=== PATIENT | male | born 1950 | race Caucasian/White ===

== ENCOUNTER 2021-06-03 05:45 | Day surgery (SDC) | payer MEDICARE ==
[2021-06-03] MEDS ORDERED: Lactated Ringers 1,000 ML IV SCH (06:30)
[2021-06-03 07:13] LABS: ANION GAP 12.2 MEQ/L (5-15); BLOOD UREA NITROGEN 11 mg/dL (9-20); CHLORIDE 99 mmol/L (98-107); Calcium 9.5 mg/dL (8.4-10.2); Carbon Dioxide 30 mmol/L (22-30); Cholesterol 149 mg/dL (50-200); Creatinine 1 1.25 mg/dL (0.66-1.25); EST GLOMERULAR FILTRATION RATE > 60.0 ML/MIN; Glucose 141 mg/dL (74-106); HDL CHOLESTEROL 27 mg/dL (40-60); LDL, DIRECT 92 mg/dL (30-100); Potassium 4.2 mmol/L (3.5-5.1); Risk Ratio 5.4; SGOT/AST 28 U/L (17-59); SGPT/ALT 25 U/L (0-50); SODIUM 137 mmol/L (137-145); TRIGLYCERIDE 126 mg/dL (30-150)
[2021-06-03] MEDS ORDERED: DIPRIVAN 200 MG/20 ML IV ONE ×2 (07:29)
[2021-06-03 08:46] VITALS: BP 156/74; PULSE 72; O2SAT 99
--- NOTE | 2021-06-03 12:02 | OP ---
SURGERY DATE/TIME: 06/03/2021 0728 PREOPERATIVE DIAGNOSIS: Screening exam. 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 PROCEDURE: Colonoscopy with cold forceps and hot snare polypectomy. SURGEON: Dr. Hodges. ANESTHESIA: MAC. Medications given by anesthesia department. HISTORY: The patient is a 71 year-old white male patient presenting for screening colonoscopy. The patient was appraised of the risks of the procedure including the risk of perforation, phlebitis, untoward reaction to medication, bleeding and missed lesions. The patient verbalized his understanding and desired to have the procedure performed. DESCRIPTION OF PROCEDURE: The patient was given the medications by the anesthesia department. He had continuous pulse oximetry, ECG monitoring, intermittent blood pressure monitoring and tidal CO2 monitoring during the examination. He was placed in the left lateral decubitus position. A digital rectal examination was performed and revealed normal anal sphincter tone, no masses and normal prostate. The flexible Olympus pediatric colonoscope was used to intubate the rectum. A view of the colon was developed to the cecum. There was noted to be thick mucus stool in a small percentage of the colon particularly in the right colon. There was also noted to be a polyp in the transverse colon approximately 1 cm in size which was removed using multiple passes with cold forceps biopsy resulting in a smaller approximately 0.5 cm polyp in the descending colon there was much larger approximately 2 cm in diameter what appeared to be tubulovillous adenoma in the rectum this was removed using hot polypectomy snare and retrieved with hot biopsy for evaluation. No other mucosal lesions being encountered, the scope was removed from the patient who tolerated the procedure well and was sent back to OP recovery in good condition. The prep was noted to be fair to good.
== END 2021-06-03 08:56 | disposition home or self-care (01) ==
LOC: SDC 05:45
PROVIDERS: ATTEND Family Medicine
DX: Z12.11 Encounter for screening for malignant neoplasm of colon (principal); Z79.899 Other long term (current) drug therapy; E11.9 Type 2 diabetes mellitus without complications; Z86.79 Personal history of other diseases of the circulatory system; Z79.01 Long term (current) use of anticoagulants; D12.4 Benign neoplasm of descending colon; D12.3 Benign neoplasm of transverse colon; D12.8 Benign neoplasm of rectum
CPT/HCPCS: 36415; 80048; 80061; 83036; 83721; 84450; 84460; 88305; 99100; J2704

== ENCOUNTER 2022-12-08 22:13 | Observation (INO) | payer MEDICARE ==
[2022-12-08 23:21] LABS: Absolute Neutrophil Ct (ANC) 4.08 x10^3/uL (1.4-6.9); Basophil (Absolute #) 0.02 x10^3/uL (0-0.4); Eosinophil % 2.8 % (0.00-5.0); Eosinophil (Absolute #) 0.16 x10^3/uL (0-0.5); Hemoglobin 13.6 g/dL (12.5-18.0); Lymphocyte (Absolute #) 1.08 x10^3/uL (1.0-4.6); Lymphocytes % 18.6 % (24.0-44.0); Mean Cell Volume 91.7 fL (78-100); Mean Corpuscular Hemoglobin 30.4 pg (26-32); Mean Corpuscular Hgb Concent. 33.2 g/dL (32-36); Monocyte (Absolute #) 0.46 x10^3/uL (0.0-1.3); Monocytes % 7.9 % (0.0-12.0); Neutrophil % 70.2 % (36.0-66.0); Platelet Count 147 x10^3/uL (150-450); Red Blood Count 4.47 x10^6/uL (4.1-5.6); Red Cell Distribution Width 13.5 % (11.5-14.0); White Blood Count 5.8 x10^3/uL (4.0-10.5)
--- NOTE | 2022-12-08 23:38 | ERPHSYRPT ---
- History of Present Illness Time Seen by Provider: 12/09/22 01:42 Source: patient Exam Limitations: no limitations Patient Subjective Stated Complaint: pt states he started having pain in his lt arm tonight. states he thinks it may be from anxiety and getting "worked up" worrying Triage Nursing Assessment: pt alert and oriented, answers questions approp. pt ambualtory with steady gait noted. respirations nonlabored with lungs cta. skin pink warm and dry. radial pulse and cap refill wnl. heart rate 74 on monitor- a fib, pt states chronic afib. Physician History: 72-year-old male presents to our ED for evaluation. Patient states he was at home lying in bed. Patient felt a vague discomfort in his left forearm. P atient became concerned and came to our ED for evaluation. Patient has a cardiac history. Patient states she had 5 vessel CABG performed in 1996. Patient has been feeling very anxious. Patient states he ate "a bunch of chocolate candy". Patient later went to sleep. Patient felt guilty about ea ting the candy. Patient's felt as though this may hurt his heart. In regretting his chocolate binge patient experienced vague discomfort at his left forearm. No associated chest pain or shortness of breath. No nausea vomiting or diaphoresis. Upon arrival to our ED patient was pain-free. Patient otherwise feels well. He voices no other complaints or concerns at this time. Portions of this note were created with voice recognition technology. There may be grammatical, spelling, punctuation or sound alike errors Timing/Duration: today Severity: moderate Modifying Factors: Improves With: nothing Associated Symptoms: denies symptoms Allergies/Adverse Reactions: No Known Drug Allergies Allergy (Verified 12/08/22 22:33) Home Medications: ALPRAZolam [Alprazolam] 0.25 mg PO DAILY 05/24/21 [History] Amlodipine Besylate 2.5 mg PO BID 05/24/21 [History] Apixaban [Eliquis] 5 mg PO BID 05/24/21 [History] Atorvastatin Calcium 20 mg PO DAILY 05/24/21 [History] Furosemide 40 mg PO BID 05/24/21 [History] Glyburide 5 mg [Micronase 5 MG] 1 tab PO BID 05/24/21 [History] Metformin HCl [Fortamet] 1 tab PO BID 05/24/21 [History] Potassium Chloride [Klor-Con 10] 1 tab PO DAILY 05/24/21 [History] Aspirin EC 81 mg [Ecotrin 81 mg] 81 mg PO DAILY 12/08/22 [History] Metoprolol Tartrate 50 mg [Lopressor 50 MG] 50 mg PO BID 12/08/22 [History] Hx Tetanus, Diphtheria Vaccination/Date Given: Yes Hx Influenza Vaccination/Date Given: Yes Hx Pneumococcal Vaccination/Date Given: No Immunizations Up to Date: Yes Travel Risk - International Travel Have you traveled outside of the country in past 3 weeks: No - Coronavirus Screening Are you exhibiting any of the following symptoms?: No Close contact with a COVID-19 positive Pt in past 14-21 Days: No - Vaccine Status Have you recieved a Covid-19 vaccination: Yes [employer]: [employer] - Vaccination Dates Date of 2cond Vaccination (if applicable): 2020 - Review of Systems Constitutional: No Symptoms, No Fever, No Chills Eyes: No Symptoms Ears, Nose, & Throat: No Symptoms Respiratory: No Symptoms, No Cough, No Dyspnea Cardiac: No Symptoms, No Chest Pain, No Edema, No Syncope Abdominal/Gastrointestinal: No Symptoms, No Abdominal Pain, No Nausea, No Vomiting, No Diarrhea Genitourinary Symptoms: No Symptoms, No Dysuria Musculoskeletal: No Symptoms, No Back Pain, No Neck Pain Skin: No Symptoms, No Rash Neurological: No Symptoms, No Dizziness, No Focal Weakness, No Sensory Changes Psychological: No Symptoms Endocrine: No Symptoms Hematologic/Lymphatic: No Symptoms Immunological/Allergic: No Symptoms All Other Systems: Reviewed and Negative - Past Medical History Neurological History: No Pertinent History ENT History: No Pertinent History Cardiac History: Coronary Artery Disease, High Cholesterol, Hypertension Respiratory History: No Pertinent History Endocrine Medical History: Diabetes Type II Musculoskeletal History: No Pertinent History GI Medical History: No Pertinent History History: No Pertinent History Psycho-Social History: No Pertinent History Male Reproductive Disorders: No Pertinent History - Past Surgical History Past Surgical History: Yes Neuro Surgical History: No Pertinent History Cardiac: CABG, Cardiac Catheterization Respiratory: No Pertinent History Gastrointestinal: No Pertinent History Genitourinary: No Pertinent History Musculoskeletal: No Pertinent History Male Surgical History: No Pertinent History Other Surgical History: 5 vessel cabg - Social History Smoking Status: Never smoker Exposure to second hand smoke: No Drug Use: none Patient Lives Alone: No - Nursing Vital Signs Nursing Vital Signs: Initial Vital Signs Temperature 98.3 F 12/08/22 22:14 Pulse Rate 92 H 12/08/22 22:14 Respiratory Rate 18 12/08/22 22:14 Blood Pressure 186/114 12/08/22 22:14 O2 Sat by Pulse Oximetry 98 12/08/22 22:14 Pain Scale Pain Intensity 0 - Physical Exam General Appearance: no apparent distress, alert Eye Exam: PERRL/EOMI, eyes nml inspection Ears, Nose, Throat Exam: normal ENT inspection, TMs normal, pharynx normal, moist mucous membranes Neck Exam: normal inspection, non-tender, supple, full range of motion Respiratory Exam: normal breath sounds, lungs clear, airway intact, No respiratory distress Cardiovascular Exam: regular rate/rhythm, normal heart sounds, normal peripheral pulses Gastrointestinal/Abdomen Exam: soft, normal bowel sounds, No tenderness, No mass Back Exam: normal inspection, normal range of motion, No CVA tenderness, No vertebral tenderness Extremity Exam: normal inspection, normal range of motion, pelvis stable Neurologic Exam: alert, oriented x 3, cooperative, normal mood/affect, nml cerebellar function, nml station & gait, sensation nml, No motor deficits Skin Exam: normal color, warm, dry, No rash Lymphatic Exam: No adenopathy SpO2 Interpretation: normal SpO2: 98 O2 Delivery: Room Air - Course Nursing assessment & vital signs reviewed: Yes EKG Interpreted by Me: RATE (81), A-fib (Chronic A. fib. Patient on Eliquis. Rate controlled at 81), NORMAL AXIS, NORMAL INTERVALS, Other (EKG is similar to that performed at [facility] on December 02, 2016. They faxed over a copy of the ECG performed at that time. A copy should be in patient's chart) - Radiology Exams Chest X-ray Interpretation: Interpreted by me (Clear lung rubio. Normal cardiac silhouette. Left humerus hardware. Osteopenia. Nonacute chest with chronic features) Ordered Tests: Active Orders 24 hr Category Date Time Status Oil Laboratory Analyst STAT Care 12/08/22 22:47 Active EKG-ER Only STAT Care 12/08/22 22:46 Active Pulse Oximetry (ED) STAT Care 12/08/22 22:46 Active CHEST 1 VIEW (PORTABLE) Stat Exams 12/09/22 03:26 Ordered CBC W DIFF Stat Lab 12/08/22 23:20 Completed CMP Stat Lab 12/08/22 23:20 Completed TROPONIN Q4H Lab 12/08/22 23:20 Completed TROPONIN Q4H Lab 12/09/22 02:00 Completed TROPONIN Q4H Lab 12/09/22 07:00 Ordered Transfer Order Routine Transfer 12/09/22 Ordered Medication Summary Discontinued Medications Generic Name Dose Route Start Last Admin Trade Name Verónica PRN Reason Stop Dose Admin Aspirin 324 mg 12/09/22 03:22 12/09/22 03:52 Aspirin 81 Mg Tab.Chew PO 12/09/22 03:23 324 mg STAT ONE Administration Aspirin Confirm 12/09/22 03:51 Aspirin 81 Mg Tab.Chew Administered 12/09/22 03:52 Dose 324 mg .ROUTE .STK-MED ONE Nitroglycerin 1 gm 12/09/22 03:22 12/09/22 03:52 Nitroglycerin 1 Gm Packet TOP 12/09/22 03:23 1 gm STAT ONE Administration Nitroglycerin Confirm 12/09/22 03:51 Nitroglycerin 1 Gm Packet Administered 12/09/22 03:52 Dose 1 gm .ROUTE .STK-MED ONE Lab/Rad Data: Laboratory Result Diagrams 12/08/22 23:20 12/08/22 23:20 Laboratory Results 12/09/22 12/08/22 12/08/22 Range/Units 02:00 23:20 23:20 WBC (4.0-10.5) x10^3/uL RBC (4.1-5.6) x10^6/uL Hgb (12.5-18.0) g/dL Hct (42-50) % MCV (78-100) fL MCH (26-32) pg MCHC (32-36) g/dL RDW (11.5-14.0) % Plt Count (150-450) x10^3/uL MPV (7.5-11.0) fL Gran % (36.0-66.0) % Immature Gran % (Auto) (0.00-0.4) % Nucleat RBC Rel Count (0.00-0.1) % Eos # (Auto) (0-0.5) x10^3/uL Immature Gran # (Auto) (0.00-0.03) x10^3u/L Absolute Lymphs (auto) (1.0-4.6) x10^3/uL Absolute Monos (auto) (0.0-1.3) x10^3/uL Absolute Nucleated RBC (0.00-0.01) x10^3u/L Lymphocytes % (24.0-44.0) % Monocytes % (0.0-12.0) % Eosinophils % (0.00-5.0) % Basophils % (0.0-0.4) % Absolute Granulocytes (1.4-6.9) x10^3/uL Basophils # (0-0.4) x10^3/uL Sodium 132 L (137-145) mmol/L Potassium 4.5 (3.5-5.1) mmol/L Chloride 98 (98-107) mmol/L Carbon Dioxide 26 (22-30) mmol/L Anion Gap 11.8 (5-15) MEQ/L BUN 15 (9-20) mg/dL Creatinine 1.30 H (0.66-1.25) mg/dL Estimated GFR 57.5 ML/MIN Glucose 252 H (74-106) mg/dL Calcium 8.5 (8.4-10.2) mg/dL Total Bilirubin 0.60 (0.2-1.3) mg/dL AST 24 (17-59) U/L ALT 24 (0-50) U/L Alkaline Phosphatase 125 (38-126) U/L Troponin I 0.016 0.015 (0.000-0.034) ng/mL Serum Total Protein 7.7 (6.3-8.2) g/dL Albumin 4.2 (3.5-5.0) g/dL Influenza Type A Ag (NEGATIVE) Influenza Type B Ag (NEGATIVE) RSV (PCR) (Negative) SARS-CoV-2 (PCR) (NEGATIVE) 12/08/22 12/08/22 Range/Units 23:20 00:00 WBC 5.8 (4.0-10.5) x10^3/uL RBC 4.47 (4.1-5.6) x10^6/uL Hgb 13.6 (12.5-18.0) g/dL Hct 41.0 L (42-50) % MCV 91.7 (78-100) fL MCH 30.4 (26-32) pg MCHC 33.2 (32-36) g/dL RDW 13.5 (11.5-14.0) % Plt Count 147 L (150-450) x10^3/uL MPV 9.0 (7.5-11.0) fL Gran % 70.2 H (36.0-66.0) % Immature Gran % (Auto) 0.2 (0.00-0.4) % Nucleat RBC Rel Count 0.0 (0.00-0.1) % Eos # (Auto) 0.16 (0-0.5) x10^3/uL Immature Gran # (Auto) 0.01 (0.00-0.03) x10^3u/L Absolute Lymphs (auto) 1.08 (1.0-4.6) x10^3/uL Absolute Monos (auto) 0.46 (0.0-1.3) x10^3/uL Absolute Nucleated RBC 0.00 (0.00-0.01) x10^3u/L Lymphocytes % 18.6 L (24.0-44.0) % Monocytes % 7.9 (0.0-12.0) % Eosinophils % 2.8 (0.00-5.0) % Basophils % 0.3 (0.0-0.4) % Absolute Granulocytes 4.08 (1.4-6.9) x10^3/uL Basophils # 0.02 (0-0.4) x10^3/uL Sodium (137-145) mmol/L Potassium (3.5-5.1) mmol/L Chloride (98-107) mmol/L Carbon Dioxide (22-30) mmol/L Anion Gap (5-15) MEQ/L BUN (9-20) mg/dL Creatinine (0.66-1.25) mg/dL Estimated GFR ML/MIN Glucose (74-106) mg/dL Calcium (8.4-10.2) mg/dL Total Bilirubin (0.2-1.3) mg/dL AST (17-59) U/L ALT (0-50) U/L Alkaline Phosphatase (38-126) U/L Troponin I (0.000-0.034) ng/mL Serum Total Protein (6.3-8.2) g/dL Albumin (3.5-5.0) g/dL Influenza Type A Ag NEGATIVE (NEGATIVE) Influenza Type B Ag NEGATIVE (NEGATIVE) RSV (PCR) NEGATIVE (Negative) SARS-CoV-2 (PCR) NEGATIVE (NEGATIVE) - Progress Progress: improved Progress Note: Patient is a 72-year-old male presents to our ED with a history of CABG x5 vessels approximately 23 years ago for evaluation of left arm pain. (Of note patient has history of A. fib. Currently on Eliquis) patient associated the left arm pain with acute coronary syndrome. No associated bryce chest pain or diaphoresis. Patient's review of system and physical exam essentially nonremarkable. Patient symptoms are acute in onset. Complexity of symptom was moderate. Orders include CBC CMP UA chest x-ray EKG, COVID troponin. Results reviewed. Results were used for medical decision making. Patient does not have any old EKGs in our system. We obtained previous EKGs from [facility]. EKGs were reviewed and appear similar to today's EKGs. Patient received aspirin and nitroglycerin in our ED. Patient blood pressure elevated. Patient will receive his home meds in our ED. Plan of care discussed with patient. He agrees to admission [facility] for f urther evaluation and treatment. Case discussed with Dr. Garcia who accepts admission to observation. Level of EM service provided was moderate. Complexity of problem addressed was moderate. Complexity of data reviewed and analyzed is moderate. Risks of complication and or risk of morbidity/mortality of patient management is moderate. No critical care time. 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 Admit orders entered Portions of this note were created with voice recognition technology. There may be grammatical, spelling, punctuation or sound alike errors 12/09/22 03:[address] Polly Will see patient in: hospital (observation) Counseled pt/family regarding: lab results, diagnosis, need for follow-up - Departure Departure Disposition: Observation Clinical Impression: Encounter for medical screening examination, Arm pain, Elevated troponin, Chronic renal insufficiency, ACS (acute coronary syndrome), Hypertension, Hyponatremia, Hyperglycemia, Abnormal EKG Condition: Stable Critical Care Time: No Referrals: TAMAR BARBOSA [Primary Care Provider] - Follow up/PCP as directed Additional Instructions: Discharge/Care Plan VALERIANO,IMAN GENE was seen on 12/09/22 in the Emergency Room. The patient was counseled regarding Diagnosis,Lab results, Imaging studies, need for follow up and when to return to the Emergency Room. Prescriptions given: Discharge Note I have spoken with the patient and/or caregivers. I have explained the patient's condition, diagnosis and treatment plan based on the information available to me at this time. I have answered the patient's and/or caregiver's questions and addressed any concerns. The patient and/or caregivers have as good understanding of the patient's diagnosis, condition and treatment plan as can be expected at this point. The vital signs have been stable. The patient's condition is stable and appropriate for discharge from the emergency department. The patient will pursue further outpatient evaluation with the primary care physician or other designated or consulting physician as outlined in the discharge instructions. The patient and/or caregivers are agreeable to this plan of care and follow-up instructions have been explained in detail. The patient and/or caregivers have received these instruction. The patient/and or caregivers are aware that any significant change in condition or worsening of symptoms should prompt an immediate return to this or the closest emergency department or call 911.
[2022-12-08 23:43] LABS: ALBUMIN 4.2 g/dL (3.5-5.0); ANION GAP 11.8 MEQ/L (5-15); BILIRUBIN,TOTAL 0.6 mg/dL (0.2-1.3); Calcium 8.5 mg/dL (8.4-10.2); Creatinine 1 1.3 mg/dL (0.66-1.25); EST GLOMERULAR FILTRATION RATE 57.5 ML/MIN; Potassium 4.5 mmol/L (3.5-5.1); Total Protein 7.7 g/dL (6.3-8.2)
[2022-12-09 00:25] LABS: INFLUENZA A NEGATIVE (NEGATIVE); INFLUENZA B NEGATIVE (NEGATIVE); RESPIRATORY SYNCTIAL VIRUS NEGATIVE (Negative); SARS-CoV-2 Xpert Express NEGATIVE (NEGATIVE)
[2022-12-09] MEDS ORDERED: NITRO-BID 2% UD PACKETS TOP ONE (03:22)
[2022-12-09] MEDS ORDERED: BABY ASPIRIN 81 MG CHEW PO ONE (03:22)
[2022-12-09] MEDS ORDERED: BABY ASPIRIN 81 MG CHEW ONE (03:51)
[2022-12-09] MEDS ORDERED: NITRO-BID 2% UD PACKETS ONE (03:51)
[2022-12-09] MEDS ORDERED: Senokot-S Tablet PO PRN (04:27)
[2022-12-09] MEDS ORDERED: MAALOX ES 30 ML UNIT DOSE PO PRN (04:27)
[2022-12-09] MEDS ORDERED: MILK OF MAGNESIA 30 ML PO PRN (04:27)
[2022-12-09] MEDS ORDERED: Zofran 4 MG/2 ML VIAL IV PRN (04:27)
--- NOTE | 2022-12-09 08:50 | XRAY ---
Indication: Chest pain. Comparison: March 06, 2016 Portable apical lordotic chest remains clear again with incidental tiny calcified granulomas. Heart not enlarged again with CABG. Bony thorax intact again with osteopenia and mild degenerative changes. Impression: Continued nonacute chest with chronic features.
[2022-12-09] MEDS ORDERED: ZOCOR 20MG PO SCH (10:00)
[2022-12-09] MEDS: Klor Con PO SCH (10:32)
[2022-12-09] MEDS: ELIQUIS 2.5 MG TABLET PO SCH ×2 (10:32→19:23)
[2022-12-09] MEDS: NORVASC 5 MG PO SCH ×2 (10:32→19:23)
[2022-12-09] MEDS: Lasix 40 MG PO SCH ×2 (10:32→15:24)
[2022-12-09] MEDS: Micronase 5 MG PO SCH ×2 (10:32→19:22)
[2022-12-09] MEDS: Lopressor 50 MG PO SCH ×2 (10:32→19:23)
[2022-12-09] MEDS: ECOTRIN 81 MG PO SCH (10:32)
[2022-12-09] MEDS: xanAX 0.25 MG PO PRN (10:36)
--- NOTE | 2022-12-09 13:00 | PCM.HP ---
History of Present Illness - Chief Complaint Chief Complaint: ACS, INCREASED TROPONIN, ABNORMAL EKG History of Present Illness: is a 72 year old male pt of Dr. Hodges admitted through ER with armpain to r/o ID, hyponatremia, abdn ekg, hyperglycemia. He has hx CAD (CABG x5, 23 yr ago) and sees Dr. Olvera. Also PMHx of RAHUL, afib, DM, HTN, CRI (since at least 2017). Has never been a smoker. He felt bad yesterday pm, felt cold and tired. Had bilat arm pain; was outside and thought it may be due to the cold; it did resolve when he went inside. Pain was shoulders to forearms bilat; sometimes he says his hands hurt and sometimes he denies it. He has been having episodes of bilat arm pain, usually when in the cold - says unsure what's causing it. No hx shoulder surgery. says yesterday he got on a ladder inside and was working with his hands in the air. BP noted up to 201/108, 190/114. says he has been taking home meds and took his last night. CXR nonacute. Troponins neg x 3. EKG showed afib, rate controlled, no ST changed indicative of ischemia. - Review of Systems Cardiac: Edema (LLE edema, chronic), Other (bilat arm pain) Abdominal/Gastrointestinal: Diarrhea (yesterday) Skin: Pruritis (but no visible rash (arms)) Medications & Allergies Home Medications: Home Medication List ALPRAZolam [Alprazolam] 0.125 mg PO BIDPRN PRN 05/24/21 [History Confirmed 12/09/22] Amlodipine Besylate 2.5 mg PO BID 05/24/21 [History Confirmed 12/08/22] Apixaban [Eliquis] 5 mg PO BID 05/24/21 [History Confirmed 12/08/22] Atorvastatin Calcium 20 mg PO HS 05/24/21 [History Confirmed 12/09/22] Furosemide 40 mg PO 0800,1600 05/24/21 [History Confirmed 12/09/22] Glyburide 5 mg [Micronase 5 MG] 5 mg PO BID 05/24/21 [History Confirmed 12/09/22] Metformin HCl [Fortamet] 1,000 mg PO BID 05/24/21 [History Confirmed 12/09/22] Potassium Chloride [Klor-Con 10] 10 meq PO DAILY 05/24/21 [History Confirmed 12/09/22] Aspirin EC 81 mg [Ecotrin 81 mg] 81 mg PO DAILY 12/08/22 [History Confirmed 12/08/22] Metoprolol Tartrate 50 mg [Lopressor 50 MG] 50 mg PO BID 12/08/22 [History Confirmed 12/08/22] Allergies/Adverse Reactions: Allergies Allergy/AdvReac Type Severity Reaction Status Date / Time No Known Drug Allergies Allergy Verified 12/09/22 05:08 - Past Medical History Past Medical History: Yes Neurological History: No Pertinent History ENT History: No Pertinent History Cardiac History: Coronary Artery Disease, High Cholesterol, Hypertension Respiratory History: CHF Endocrine Medical History: Diabetes Type II Musculoskelatal History: No Pertinent History GI Medical History: No Pertinent History History: No Pertinent History Pyscho-Social History: No Pertinent History Male Reproductive Disorders: No Pertinent History - Past Surgical History Past Surgical History: Yes Neuro Surgical History: No Pertinent History Cardiac History: CABG, Cardiac Catheterization Respiratory Surgery: No Pertinent History GI Surgical History: No Pertinent History Genitourinary Surgical Hx: No Pertinent History Musculskeletal Surgical Hx: No Pertinent History Male Surgical History: No Pertinent History Other Surgical History: 5 vessel cabg - Social History Smoking Status: Never smoker Exposure to second hand smoke: No Alcohol: None Drug Use: none - Physical Exam Vital Signs: Vital Signs - 24 hr Temp Pulse Resp BP Pulse Ox 12/09/22 11:51 97.4 F 77 16 145/85 93 L 12/09/22 07:52 97.3 F 76 16 148/75 93 L 12/09/22 06:20 78 166/81 12/09/22 04:48 98.0 F 80 20 190/114 98 12/09/22 04:15 98 12/09/22 04:09 102 H 18 169/104 96 12/09/22 02:00 86 16 201/108 97 12/09/22 01:07 85 16 182/95 97 12/09/22 00:14 80 15 169/85 96 12/08/22 22:46 96 12/08/22 22:14 98.3 F 92 H 18 186/114 98 Neurologic Exam: alert (oriented to place but not time, "I'm retired"), cooperative Eye Exam: eyes nml inspection Ears, Nose, Throat Exam: moist mucous membranes Neck Exam: normal inspection, non-tender, No lymphadenopathy, No subcutaneous emphysema, No thyromegaly Respiratory Exam: normal breath sounds, lungs clear, No crackles/rales, No rhonchi, No wheezing Cardiovascular Exam: regular rate/rhythm, normal heart sounds, No murmur Gastrointestinal/Abdomen Exam: soft, normal bowel sounds, No tenderness, No distention, No mass, No guarding, No rebound Back Exam: normal inspection, No CVA tenderness, No rash Extremity Exam: normal inspection, swelling (trace pretibial edema bilat) Skin Exam: normal color, warm, dry, No rash Results - Labs Lab/Micro Results: Lab Results-Last 24 Hours 12/08/22 12/08/22 12/08/22 Range/Units 00:00 23:20 23:20 WBC 5.8 (4.0-10.5) x10^3/uL RBC 4.47 (4.1-5.6) x10^6/uL Hgb 13.6 (12.5-18.0) g/dL Hct 41.0 L (42-50) % MCV 91.7 (78-100) fL MCH 30.4 (26-32) pg MCHC 33.2 (32-36) g/dL RDW 13.5 (11.5-14.0) % Plt Count 147 L (150-450) x10^3/uL MPV 9.0 (7.5-11.0) fL Gran % 70.2 H (36.0-66.0) % Immature Gran % (Auto) 0.2 (0.00-0.4) % Nucleat RBC Rel Count 0.0 (0.00-0.1) % Eos # (Auto) 0.16 (0-0.5) x10^3/uL Immature Gran # (Auto) 0.01 (0.00-0.03) x10^3u/L Absolute Lymphs (auto) 1.08 (1.0-4.6) x10^3/uL Absolute Monos (auto) 0.46 (0.0-1.3) x10^3/uL Absolute Nucleated RBC 0.00 (0.00-0.01) x10^3u/L Lymphocytes % 18.6 L (24.0-44.0) % Monocytes % 7.9 (0.0-12.0) % Eosinophils % 2.8 (0.00-5.0) % Basophils % 0.3 (0.0-0.4) % Absolute Granulocytes 4.08 (1.4-6.9) x10^3/uL Basophils # 0.02 (0-0.4) x10^3/uL Sodium 132 L (137-145) mmol/L Potassium 4.5 (3.5-5.1) mmol/L Chloride 98 (98-107) mmol/L Carbon Dioxide 26 (22-30) mmol/L Anion Gap 11.8 (5-15) MEQ/L BUN 15 (9-20) mg/dL Creatinine 1.30 H (0.66-1.25) mg/dL Estimated GFR 57.5 ML/MIN Glucose 252 H (74-106) mg/dL POC Glucometer (74 to 106) mg/dL Calcium 8.5 (8.4-10.2) mg/dL Total Bilirubin 0.60 (0.2-1.3) mg/dL AST 24 (17-59) U/L ALT 24 (0-50) U/L Alkaline Phosphatase 125 (38-126) U/L Troponin I (0.000-0.034) ng/mL Serum Total Protein 7.7 (6.3-8.2) g/dL Albumin 4.2 (3.5-5.0) g/dL Influenza Type A Ag NEGATIVE (NEGATIVE) Influenza Type B Ag NEGATIVE (NEGATIVE) RSV (PCR) NEGATIVE (Negative) SARS-CoV-2 (PCR) NEGATIVE (NEGATIVE) 12/08/22 12/09/22 12/09/22 Range/Units 23:20 02:00 06:47 WBC (4.0-10.5) x10^3/uL RBC (4.1-5.6) x10^6/uL Hgb (12.5-18.0) g/dL Hct (42-50) % MCV (78-100) fL MCH (26-32) pg MCHC (32-36) g/dL RDW (11.5-14.0) % Plt Count (150-450) x10^3/uL MPV (7.5-11.0) fL Gran % (36.0-66.0) % Immature Gran % (Auto) (0.00-0.4) % Nucleat RBC Rel Count (0.00-0.1) % Eos # (Auto) (0-0.5) x10^3/uL Immature Gran # (Auto) (0.00-0.03) x10^3u/L Absolute Lymphs (auto) (1.0-4.6) x10^3/uL Absolute Monos (auto) (0.0-1.3) x10^3/uL Absolute Nucleated RBC (0.00-0.01) x10^3u/L Lymphocytes % (24.0-44.0) % Monocytes % (0.0-12.0) % Eosinophils % (0.00-5.0) % Basophils % (0.0-0.4) % Absolute Granulocytes (1.4-6.9) x10^3/uL Basophils # (0-0.4) x10^3/uL Sodium (137-145) mmol/L Potassium (3.5-5.1) mmol/L Chloride (98-107) mmol/L Carbon Dioxide (22-30) mmol/L Anion Gap (5-15) MEQ/L BUN (9-20) mg/dL Creatinine (0.66-1.25) mg/dL Estimated GFR ML/MIN Glucose (74-106) mg/dL POC Glucometer 193 H (74 to 106) mg/dL Calcium (8.4-10.2) mg/dL Total Bilirubin (0.2-1.3) mg/dL AST (17-59) U/L ALT (0-50) U/L Alkaline Phosphatase (38-126) U/L Troponin I 0.015 0.016 (0.000-0.034) ng/mL Serum Total Protein (6.3-8.2) g/dL Albumin (3.5-5.0) g/dL Influenza Type A Ag (NEGATIVE) Influenza Type B Ag (NEGATIVE) RSV (PCR) (Negative) SARS-CoV-2 (PCR) (NEGATIVE) 12/09/22 12/09/22 Range/Units 07:25 11:32 WBC (4.0-10.5) x10^3/uL RBC (4.1-5.6) x10^6/uL Hgb (12.5-18.0) g/dL Hct (42-50) % MCV (78-100) fL MCH (26-32) pg MCHC (32-36) g/dL RDW (11.5-14.0) % Plt Count (150-450) x10^3/uL MPV (7.5-11.0) fL Gran % (36.0-66.0) % Immature Gran % (Auto) (0.00-0.4) % Nucleat RBC Rel Count (0.00-0.1) % Eos # (Auto) (0-0.5) x10^3/uL Immature Gran # (Auto) (0.00-0.03) x10^3u/L Absolute Lymphs (auto) (1.0-4.6) x10^3/uL Absolute Monos (auto) (0.0-1.3) x10^3/uL Absolute Nucleated RBC (0.00-0.01) x10^3u/L Lymphocytes % (24.0-44.0) % Monocytes % (0.0-12.0) % Eosinophils % (0.00-5.0) % Basophils % (0.0-0.4) % Absolute Granulocytes (1.4-6.9) x10^3/uL Basophils # (0-0.4) x10^3/uL Sodium (137-145) mmol/L Potassium (3.5-5.1) mmol/L Chloride (98-107) mmol/L Carbon Dioxide (22-30) mmol/L Anion Gap (5-15) MEQ/L BUN (9-20) mg/dL Creatinine (0.66-1.25) mg/dL Estimated GFR ML/MIN Glucose (74-106) mg/dL POC Glucometer 227 H (74 to 106) mg/dL Calcium (8.4-10.2) mg/dL Total Bilirubin (0.2-1.3) mg/dL AST (17-59) U/L ALT (0-50) U/L Alkaline Phosphatase (38-126) U/L Troponin I 0.020 (0.000-0.034) ng/mL Serum Total Protein (6.3-8.2) g/dL Albumin (3.5-5.0) g/dL Influenza Type A Ag (NEGATIVE) Influenza Type B Ag (NEGATIVE) RSV (PCR) (Negative) SARS-CoV-2 (PCR) (NEGATIVE) Accuchecks Date 12/09/22 Time 11:50 - Radiology Impressions Radiology Exams & Impressions: Radiology Procedures Category Date Time Status CHEST 1 VIEW (PORTABLE) Stat Exams 12/09/22 03:26 Completed - Other Procedures and Tests Respiratory Therapy 12/10/22 05:00 EKG DAILY 12/11/22 05:00 EKG DAILY 12/12/22 05:00 EKG DAILY Assessment/Plan (1) Hypertensive emergency Current Visit: Yes Status: Acute Assessment & Plan: will watch him until tomorrow; will get home meds this morning Code(s): I16.1 - HYPERTENSIVE EMERGENCY (2) ACS (acute coronary syndrome) Current Visit: Yes Status: Ruled-out Assessment & Plan: ID ruled out. Code(s): I24.9 - ACUTE ISCHEMIC HEART DISEASE, UNSPECIFIED (3) Abnormal EKG Current Visit: Yes Status: Ruled-out Assessment & Plan: I don't appreciate any ST changes on EKG that could indicate ischemia. Code(s): R94.31 - ABNORMAL ELECTROCARDIOGRAM [ECG] [EKG] (4) Arm pain Current Visit: Yes Status: Acute Qualifiers: Laterality: bilateral Qualified Code(s): M79.601 - Pain in right arm; M79.602 - Pain in left arm Assessment & Plan: not currently c/o arm pain (5) Chronic renal insufficiency Current Visit: Yes Status: Chronic Code(s): N18.9 - CHRONIC KIDNEY DISEASE, UNSPECIFIED (6) Hyponatremia Current Visit: Yes Status: Acute Assessment & Plan: recheck today. Code(s): E87.1 - HYPO-OSMOLALITY AND HYPONATREMIA
[2022-12-09 14:48] LABS: Absolute Neutrophil Ct (ANC) 5.28 x10^3/uL (1.4-6.9); Basophil (Absolute #) 0.02 x10^3/uL (0-0.4); Eosinophil % 1.4 % (0.00-5.0); Hematocrit 41.4 % (42-50); Hemoglobin 13.6 g/dL (12.5-18.0); Lymphocyte (Absolute #) 0.95 x10^3/uL (1.0-4.6); Lymphocytes % 13.7 % (24.0-44.0); Mean Cell Volume 90.8 fL (78-100); Mean Corpuscular Hemoglobin 29.8 pg (26-32); Mean Corpuscular Hgb Concent. 32.9 g/dL (32-36); Mean Platelet Volume 9.1 fL (7.5-11.0); Monocyte (Absolute #) 0.54 x10^3/uL (0.0-1.3); Monocytes % 7.8 % (0.0-12.0); Neutrophil % 76.5 % (36.0-66.0); Platelet Count 147 x10^3/uL (150-450); Red Blood Count 4.56 x10^6/uL (4.1-5.6); Red Cell Distribution Width 13.6 % (11.5-14.0); White Blood Count 6.9 x10^3/uL (4.0-10.5)
[2022-12-09 15:22] LABS: ANION GAP 9.2 MEQ/L (5-15); Calcium 8.7 mg/dL (8.4-10.2); Creatinine 1 1.29 mg/dL (0.66-1.25); Potassium 4.2 mmol/L (3.5-5.1)
[2022-12-09] MEDS: APRESOLINE 20 MG/ML INJ IV PRN ×2 (16:52→17:36)
[2022-12-09] MEDS: ZOCOR 20MG PO SCH (19:22)
[2022-12-09] MEDS ORDERED: NON-FORMULARY ITEM (Amlodipine Besylate [Amlodipine Besylate] 2.5 MG Tablet) PO SCH (22:00)
[2022-12-09] MEDS ORDERED: NON-FORMULARY ITEM (Apixaban [Eliquis] 5 MG Tablet) PO SCH (22:00)
[2022-12-10] MEDS: APRESOLINE 20 MG/ML INJ IV PRN ×2 (03:46→04:29)
[2022-12-10 05:51] LABS: Absolute Neutrophil Ct (ANC) 4.71 x10^3/uL (1.4-6.9); Basophil (Absolute #) 0.03 x10^3/uL (0-0.4); Eosinophil % 1.5 % (0.00-5.0); Hemoglobin 14.1 g/dL (12.5-18.0); Lymphocyte (Absolute #) 1.16 x10^3/uL (1.0-4.6); Lymphocytes % 17.7 % (24.0-44.0); Mean Cell Volume 90.3 fL (78-100); Mean Corpuscular Hemoglobin 29.6 pg (26-32); Mean Corpuscular Hgb Concent. 32.8 g/dL (32-36); Mean Platelet Volume 9.1 fL (7.5-11.0); Monocyte (Absolute #) 0.54 x10^3/uL (0.0-1.3); Monocytes % 8.2 % (0.0-12.0); Neutrophil % 71.8 % (36.0-66.0); Platelet Count 142 x10^3/uL (150-450); Red Blood Count 4.76 x10^6/uL (4.1-5.6); Red Cell Distribution Width 13.5 % (11.5-14.0); White Blood Count 6.6 x10^3/uL (4.0-10.5)
[2022-12-10 06:37] LABS: ANION GAP 11.6 MEQ/L (5-15); BLOOD UREA NITROGEN 14 mg/dL (9-20); CHLORIDE 101 mmol/L (98-107); Carbon Dioxide 26 mmol/L (22-30); Cholesterol 176 mg/dL (50-200); Creatinine 1 1.22 mg/dL (0.66-1.25); EST GLOMERULAR FILTRATION RATE > 60.0 ML/MIN; Glucose 193 mg/dL (74-106); HDL CHOLESTEROL 33 mg/dL (40-60); LDL, DIRECT 110 mg/dL (30-100); Potassium 3.5 mmol/L (3.5-5.1); Risk Ratio 5.3; SODIUM 136 mmol/L (137-145); TRIGLYCERIDE 100 mg/dL (30-150)
[2022-12-10] MEDS: TYLENOL 325 MG PO PRN (08:17)
[2022-12-10] MEDS: ECOTRIN 81 MG PO SCH (08:18)
[2022-12-10] MEDS: Klor Con PO SCH (08:18)
[2022-12-10] MEDS: ELIQUIS 2.5 MG TABLET PO SCH ×2 (08:18→21:15)
[2022-12-10] MEDS ORDERED: TRANDATE 20 MG/4 ML SYRINGE IV PRN (08:28)
--- NOTE | 2022-12-10 08:34 | PCM.NOTE ---
Date and Time: 12/10/22829 Subjective Assessment: He had to have hydralazine x 3 yesterday and x 1 this a.m. He says it made him hot all over and had to cover his face with a wet washrag. BP up to 201/102 (from 145-201/75-111). He does not salt his food but doesn't watch labels. Denies CP but has a DAVILA. - Review of Systems Constitutional: No Fever Cardiac: No Chest Pain Objective Exam General Appearance: no apparent distress, obese Neurologic Exam: alert, cooperative, normal mood/affect Skin Exam: normal color, warm, dry, No rash Eye Exam: eyes nml inspection Ears, Nose, Throat Exam: moist mucous membranes Neck Exam: normal inspection Respiratory Exam: normal breath sounds, lungs clear, No crackles/rales, No rhonchi, No wheezing Cardiovascular Exam: normal heart sounds, irregular, No murmur Gastrointestinal/Abdomen Exam: soft, normal bowel sounds, No tenderness, No distention, No mass, No guarding, No rebound Extremity Exam: normal inspection, swelling (trace pretibial edema bilat) Back Exam: normal inspection, No rash OBJECTIVE DATA Vital Signs: Vital Signs - 24 hr Temp Pulse Resp BP Pulse Ox 12/10/22 07:31 97.5 F 83 18 179/94 95 12/10/22 05:20 183/92 12/10/22 04:30 198/100 12/10/22 03:30 98.2 F 89 22 201/102 96 12/09/22 23:40 98.2 F 92 H 19 171/74 97 12/09/22 20:00 98.0 F 97 H 21 141/80 96 12/09/22 18:14 176/94 12/09/22 17:36 187/111 12/09/22 17:18 190/100 12/09/22 16:00 97.7 F 82 16 189/91 94 L 12/09/22 11:51 97.4 F 77 16 145/85 93 L Pain Assessment - Last Documented Pain Intensity 7 Pain Scale Used 0-10 Pain Scale Intake and Output: Intake & Output 12/07/22 12/08/22 12/09/22 12/10/22 11:59 11:59 11:59 11:59 Intake Total 240 1670 Balance 240 1670 Weight 127.5 kg Lab Results: Lab Results-Last 24 Hours 12/09/22 12/09/22 12/09/22 Range/Units 11:32 14:45 14:45 WBC 6.9 (4.0-10.5) x10^3/uL RBC 4.56 (4.1-5.6) x10^6/uL Hgb 13.6 (12.5-18.0) g/dL Hct 41.4 L (42-50) % MCV 90.8 (78-100) fL MCH 29.8 (26-32) pg MCHC 32.9 (32-36) g/dL RDW 13.6 (11.5-14.0) % Plt Count 147 L (150-450) x10^3/uL MPV 9.1 (7.5-11.0) fL Gran % 76.5 H (36.0-66.0) % Immature Gran % (Auto) 0.3 (0.00-0.4) % Nucleat RBC Rel Count 0.0 (0.00-0.1) % Eos # (Auto) 0.10 (0-0.5) x10^3/uL Immature Gran # (Auto) 0.02 (0.00-0.03) x10^3u/L Absolute Lymphs (auto) 0.95 L (1.0-4.6) x10^3/uL Absolute Monos (auto) 0.54 (0.0-1.3) x10^3/uL Absolute Nucleated RBC 0.00 (0.00-0.01) x10^3u/L Lymphocytes % 13.7 L (24.0-44.0) % Monocytes % 7.8 (0.0-12.0) % Eosinophils % 1.4 (0.00-5.0) % Basophils % 0.3 (0.0-0.4) % Absolute Granulocytes 5.28 (1.4-6.9) x10^3/uL Basophils # 0.02 (0-0.4) x10^3/uL Sodium 132 L (137-145) mmol/L Potassium 4.2 (3.5-5.1) mmol/L Chloride 98 (98-107) mmol/L Carbon Dioxide 29 (22-30) mmol/L Anion Gap 9.2 (5-15) MEQ/L BUN 13 (9-20) mg/dL Creatinine 1.29 H (0.66-1.25) mg/dL Estimated GFR 58.0 ML/MIN Glucose 185 H (74-106) mg/dL POC Glucometer 227 H (74 to 106) mg/dL Calcium 8.7 (8.4-10.2) mg/dL Triglycerides (30-150) mg/dL Cholesterol (50-200) mg/dL LDL Cholesterol (30-100) mg/dL HDL Cholesterol (40-60) mg/dL Heart Disease Risk Ratio 12/10/22 12/10/22 12/10/22 Range/Units 05:00 05:00 07:22 WBC 6.6 (4.0-10.5) x10^3/uL RBC 4.76 (4.1-5.6) x10^6/uL Hgb 14.1 (12.5-18.0) g/dL Hct 43.0 (42-50) % MCV 90.3 (78-100) fL MCH 29.6 (26-32) pg MCHC 32.8 (32-36) g/dL RDW 13.5 (11.5-14.0) % Plt Count 142 L (150-450) x10^3/uL MPV 9.1 (7.5-11.0) fL Gran % 71.8 H (36.0-66.0) % Immature Gran % (Auto) 0.3 (0.00-0.4) % Nucleat RBC Rel Count 0.0 (0.00-0.1) % Eos # (Auto) 0.10 (0-0.5) x10^3/uL Immature Gran # (Auto) 0.02 (0.00-0.03) x10^3u/L Absolute Lymphs (auto) 1.16 (1.0-4.6) x10^3/uL Absolute Monos (auto) 0.54 (0.0-1.3) x10^3/uL Absolute Nucleated RBC 0.00 (0.00-0.01) x10^3u/L Lymphocytes % 17.7 L (24.0-44.0) % Monocytes % 8.2 (0.0-12.0) % Eosinophils % 1.5 (0.00-5.0) % Basophils % 0.5 (0.0-0.4) % Absolute Granulocytes 4.71 (1.4-6.9) x10^3/uL Basophils # 0.03 (0-0.4) x10^3/uL Sodium 136 L (137-145) mmol/L Potassium 3.5 (3.5-5.1) mmol/L Chloride 101 (98-107) mmol/L Carbon Dioxide 26 (22-30) mmol/L Anion Gap 11.6 (5-15) MEQ/L BUN 14 (9-20) mg/dL Creatinine 1.22 (0.66-1.25) mg/dL Estimated GFR > 60.0 ML/MIN Glucose 193 H (74-106) mg/dL POC Glucometer 165 H (74 to 106) mg/dL Calcium 9.0 (8.4-10.2) mg/dL Triglycerides 100 (30-150) mg/dL Cholesterol 176 (50-200) mg/dL LDL Cholesterol 110 H (30-100) mg/dL HDL Cholesterol 33 L (40-60) mg/dL Heart Disease Risk Ratio 5.3 Radiology Exams: Radiology Procedures Category Date Time Status CHEST 1 VIEW (PORTABLE) Stat Exams 12/09/22 03:26 Completed Assessment/Plan (1) Hypertensive emergency Current Visit: Yes Status: Acute Assessment & Plan: Still having elevated BP with some DAVILA this morning. BP down to 160s systolic with hydralazine. He is currently on torpol 50mg po BID and amlodipine 2.5mg po BID. I am increasing the amlodipine this morning to 10 mg po daily - I suspect he may have had increased swelling with amlodipine in the past, so this may be a temporary m easure. I'm also adding lisinopril 10mg po daily, knowing that it may take up to a week to fully take effect, and the amlodipine may be decreased at that time. However I do need to see BP < 180 systolic consistently before sending pt home. Code(s): I16.1 - HYPERTENSIVE EMERGENCY (2) Arm pain Current Visit: Yes Status: Acute Qualifiers: Laterality: bilateral Qualified Code(s): M79.601 - Pain in right arm; M79.602 - Pain in left arm Assessment & Plan: no complaint this morning. (3) Chronic renal insufficiency Current Visit: Yes Status: Chronic Assessment & Plan: eGFR normal this morning. Code(s): N18.9 - CHRONIC KIDNEY DISEASE, UNSPECIFIED (4) Hyponatremia Current Visit: Yes Status: Acute Assessment & Plan: nearly resolved, 136 this morning. Code(s): E87.1 - HYPO-OSMOLALITY AND HYPONATREMIA
[2022-12-10] MEDS: Glucophage 500 MG PO SCH ×2 (09:11→17:32)
[2022-12-10] MEDS: Micronase 5 MG PO SCH ×2 (09:11→21:15)
[2022-12-10] MEDS: Lasix 40 MG PO SCH ×2 (09:12→17:32)
[2022-12-10] MEDS: Zestril 10 MG PO SCH (09:12)
[2022-12-10] MEDS: Lopressor 50 MG PO SCH ×2 (09:12→21:15)
[2022-12-10] MEDS ORDERED: NORVASC 5 MG PO SCH (10:00)
[2022-12-10] MEDS ORDERED: NON-FORMULARY ITEM (Atorvastatin Calcium [Atorvastatin Calcium] 20 MG Tablet) PO SCH (10:00)
[2022-12-10] MEDS ORDERED: NON-FORMULARY ITEM (Potassium Chloride [Klor-Con 10] 10 MEQ Tablet.Er) PO SCH (10:00)
[2022-12-10] MEDS ORDERED: HUMALOG SQ PRN (14:56)
[2022-12-10 14:58] LABS: Hematocrit 45.8 % (42-50); Hemoglobin 14.3 g/dL (12.5-18.0); Mean Cell Volume 97.9 fL (78-100); Mean Corpuscular Hemoglobin 30.6 pg (26-32); Mean Corpuscular Hgb Concent. 31.2 g/dL (32-36); Platelet Count 136 x10^3/uL (150-450); Red Blood Count 4.68 x10^6/uL (4.1-5.6); White Blood Count 6.8 x10^3/uL (4.0-10.5)
--- NOTE | 2022-12-10 15:21 | XRAY ---
Indication: Confusion. Multiple contiguous axial images obtained through the head without contrast. Comparison: None Age-appropriate global atrophy and mild periventricular degenerative micro-ischemia bilaterally. No acute intracranial hemorrhage, abnormal extra-axial fluid collection, or mass effect. Fourth ventricle is midline without hydrocephalus. Bony calvarium intact. Visualized paranasal sinuses and mastoid air cells are clear. Impression: Nonacute senile brain.
[2022-12-10 15:25] LABS: ALBUMIN 4.1 g/dL (3.5-5.0); ANION GAP 10.3 MEQ/L (5-15); BILIRUBIN,TOTAL 0.7 mg/dL (0.2-1.3); Calcium 9.2 mg/dL (8.4-10.2); Creatinine 1 1.53 mg/dL (0.66-1.25); EST GLOMERULAR FILTRATION RATE 47.7 ML/MIN; Potassium 4.1 mmol/L (3.5-5.1); Total Protein 7.2 g/dL (6.3-8.2)
[2022-12-10 15:31] LABS: Appearance Clear (Clear); Bacteria None Seen /HPF (None Seen); Bilirubin Negative (Negative); Blood Negative (Negative); Epithelial Cells None Seen /HPF (None Seen); Glucose, Urine Negative (Negative); Ketones Trace (Negative); Leukocyte Esterase Negative (Negative); Nitrite Negative (Negative); Protein,Urine Dip 30 (Negative); RBC 0-2 /HPF (0-5); WBC 0-2 /HPF (0-5)
[2022-12-10 15:32] LABS: ADD URINE CULTURE? NO (NO); Hyaline Casts 26-50 /LPF (0-2)
[2022-12-10 15:49] LABS: TROPONIN 3.41 ng/mL (0.000-0.034)
[2022-12-10] MEDS: ZOCOR 20MG PO SCH (21:15)
[2022-12-11] MEDS: xanAX 0.25 MG PO PRN ×2 (01:20→21:40)
[2022-12-11] MEDS: TYLENOL 325 MG PO PRN (01:21)
[2022-12-11] MEDS ORDERED: Zyprexa Zydis 5 MG PO PRN ×2 (02:01→07:03)
[2022-12-11] MEDS: Lasix 40 MG PO SCH (08:48)
[2022-12-11] MEDS ORDERED: Lasix 40 MG/4 ML IV SCH (09:00)
[2022-12-11] MEDS ORDERED: Lasix 40 MG/4 ML IV ONE (09:00)
--- NOTE | 2022-12-11 09:19 | XRAY ---
Indication: Acute mental status change. Lower extremity edema. Comparison: December 09, 2022 Portable chest remains inflated and clear again with incidental tiny calcified granulomas. Heart not enlarged again with CABG. No new/acute findings.
[2022-12-11 09:28] LABS: Absolute Neutrophil Ct (ANC) 3.46 x10^3/uL (1.4-6.9); Basophil (Absolute #) 0.02 x10^3/uL (0-0.4); Eosinophil % 3.7 % (0.00-5.0); Eosinophil (Absolute #) 0.21 x10^3/uL (0-0.5); Hematocrit 41.1 % (42-50); Hemoglobin 13.5 g/dL (12.5-18.0); Lymphocyte (Absolute #) 1.46 x10^3/uL (1.0-4.6); Lymphocytes % 25.4 % (24.0-44.0); Mean Cell Volume 91.7 fL (78-100); Mean Corpuscular Hemoglobin 30.1 pg (26-32); Mean Corpuscular Hgb Concent. 32.8 g/dL (32-36); Mean Platelet Volume 9.3 fL (7.5-11.0); Monocyte (Absolute #) 0.58 x10^3/uL (0.0-1.3); Monocytes % 10.1 % (0.0-12.0); Neutrophil % 60.2 % (36.0-66.0); Platelet Count 143 x10^3/uL (150-450); Red Blood Count 4.48 x10^6/uL (4.1-5.6); Red Cell Distribution Width 13.8 % (11.5-14.0); White Blood Count 5.8 x10^3/uL (4.0-10.5)
[2022-12-11] MEDS: Glucophage 500 MG PO SCH ×2 (09:50→19:17)
[2022-12-11 10:08] LABS: ISTAT K 3.3 mmol/L (3.5-4.9)
[2022-12-11 10:09] LABS: ISTAT CREA 1.7 mg/dL (0.6-1.3)
--- NOTE | 2022-12-11 11:03 | XRAY ---
Indication: Right upper quadrant pain. Two-dimensional right upper quadrant abdominal sonogram performed. Comparison: None Sonogram limited due to patient body habitus and overlying bowel gas. Pancreas obscured. Visualized gallbladder normally distended with numerous tiny stones in the dependent portion. Thickened gallbladder wall measuring 3.8 mm. No pericholecystic fluid. Common bile duct measures 2.3 mm. Remaining visualized liver and right kidney are sonographically unremarkable. Right kidney measures 10.9 cm in length. Impression: 1. Limited sonogram due to patient body habitus and bowel gas. 2. Nonvisualization pancreas. 3. Cholelithiasis with wall thickening. Rule out chronic cholecystitis.
[2022-12-11] MEDS: Klor Con PO SCH ×5 (11:11→21:45)
[2022-12-11] MEDS: ZOCOR 20MG PO SCH ×2 (11:11→21:45)
[2022-12-11] MEDS: ECOTRIN 81 MG PO SCH (11:11)
[2022-12-11] MEDS: ELIQUIS 2.5 MG TABLET PO SCH ×2 (11:12→21:39)
[2022-12-11] MEDS: Micronase 5 MG PO SCH ×2 (11:12→21:41)
[2022-12-11] MEDS: Lopressor 50 MG PO SCH ×3 (11:48→23:13)
[2022-12-11] MEDS: NORVASC 5 MG PO SCH (11:48)
[2022-12-11] MEDS: Zestril 10 MG PO SCH (11:48)
--- NOTE | 2022-12-11 13:17 | PCM.NOTE ---
Date and Time: 12/11/22 1311 Subjective Assessment: Yesterday afternoon he became disoriented, so labs were done and Troponin was elevated. Pt denied CP. Dr. Olvera consulted; wanted to recheck in 6h and observe. Later troponin was lower (from 3 to 2). Pt seemed improved. BP was lower, mostly 140s-160s but one low of 122 systolic. Overnight, he became disoriented again, was dressed for work, his had to be called to come in to calm him down. He was given 0.125mg xanax (his usual bedtime dose) and then a dose of zyprexa. This morning he was still sleeping for my exam. He did wake to touch, although he was not oriented to place or time. EKG done then was unchanged. He complained of RUQ pain later in the morning; apparently though this is intermittent and chronic. Stat u/s RUQ with GB thickening. I had spoken with Dr. Olvera, who said if pt is stable can stay here, but if has recurrent CP needs to be transferred for possible heart cath (otherwise can do heart cath outpatient). - Review of Systems Abdominal/Gastrointestinal: Abdominal Pain Neurological: Other (AMS) Objective Exam General Appearance: no apparent distress, other (somnolent but woke to touch) Neurologic Exam: cooperative, disoriented, confusion Skin Exam: normal color, warm, dry, No rash Eye Exam: eyes nml inspection Ears, Nose, Throat Exam: moist mucous membranes Neck Exam: normal inspection Respiratory Exam: normal breath sounds, lungs clear, No crackles/rales, No rhonchi, No wheezing Cardiovascular Exam: normal heart sounds, irregular, No murmur Gastrointestinal/Abdomen Exam: soft, normal bowel sounds, No tenderness, No distention, No mass, No guarding, No rebound Extremity Exam: normal inspection, swelling (1+ pretibial edema bilat LE) Back Exam: normal inspection, No rash OBJECTIVE DATA Vital Signs: Vital Signs - 24 hr Temp Pulse Resp BP Pulse Ox 12/11/22 11:55 97.1 F 80 17 94/65 93 L 12/11/22 08:00 97.7 F 63 18 124/75 93 L 12/11/22 00:00 97.8 F 81 21 153/84 96 12/10/22 20:00 98.0 F 79 18 129/67 96 12/10/22 15:58 97.7 F 95 H 16 139/82 99 Pain Assessment - Last Documented Pain Intensity 0 Pain Scale Used 0-10 Pain Scale Intake and Output: Intake & Output 12/09/22 12/10/22 12/11/22 12/12/22 11:59 11:59 11:59 11:59 Intake Total 240 1910 1320 Balance 240 1910 1320 Weight 127.5 kg 126 kg Lab Results: Lab Results-Last 24 Hours 12/10/22 12/10/22 12/10/22 Range/Units 14:44 14:54 14:55 WBC 6.8 (4.0-10.5) x10^3/uL RBC 4.68 (4.1-5.6) x10^6/uL Hgb 14.3 (12.5-18.0) g/dL Hct 45.8 (42-50) % MCV 97.9 D (78-100) fL MCH 30.6 (26-32) pg MCHC 31.2 L (32-36) g/dL RDW 14.0 (11.5-14.0) % Plt Count 136 L (150-450) x10^3/uL MPV 10.0 (7.5-11.0) fL Gran % (36.0-66.0) % Immature Gran % (Auto) (0.00-0.4) % Nucleat RBC Rel Count (0.00-0.1) % Eos # (Auto) (0-0.5) x10^3/uL Immature Gran # (Auto) (0.00-0.03) x10^3u/L Absolute Lymphs (auto) (1.0-4.6) x10^3/uL Absolute Monos (auto) (0.0-1.3) x10^3/uL Absolute Nucleated RBC (0.00-0.01) x10^3u/L Lymphocytes % (24.0-44.0) % Monocytes % (0.0-12.0) % Eosinophils % (0.00-5.0) % Basophils % (0.0-0.4) % Absolute Granulocytes (1.4-6.9) x10^3/uL Basophils # (0-0.4) x10^3/uL Sodium (137-145) mmol/L Sodium Direct (138-146) mmol/L Potassium (3.5-5.1) mmol/L Chloride (98-107) mmol/L Carbon Dioxide (22-30) mmol/L Anion Gap (5-15) MEQ/L BUN (9-20) mg/dL Venous BUN (8-26) mg/dL Creatinine (0.66-1.25) mg/dL Estimated GFR ML/MIN Glucose (74-106) mg/dL POC Glucometer 183 H (74 to 106) mg/dL Lactic Acid 2.6 H (0.4-2.0) Calcium (8.4-10.2) mg/dL Ionized Calcium (1.12-1.32) mmol/L Total Bilirubin (0.2-1.3) mg/dL AST (17-59) U/L ALT (0-50) U/L Alkaline Phosphatase (38-126) U/L Troponin I (0.000-0.034) ng/mL NT-Pro-B Natriuret Pep Serum Total Protein (6.3-8.2) g/dL Albumin (3.5-5.0) g/dL Urine Color (Yellow) Urine Appearance (Clear) Urine pH (4.6-8.0) Ur Specific Clifford (1.005-1.030) Urine Protein (Negative) Urine Glucose (UA) (Negative) mg/dL Urine Ketones (Negative) Urine Blood (Negative) Urine Nitrite (Negative) Urine Bilirubin (Negative) Urine Urobilinogen (0.2) mg/dL Ur Leukocyte Esterase (Negative) U Hyaline Cast (Auto) (0-2) /LPF Urine Microscopic RBC (0-5) /HPF Urine Microscopic WBC (0-5) /HPF Ur Epithelial Cells (None Seen) /HPF Urine Bacteria (None Seen) /HPF Urine Culture Reflexed (NO) 12/10/22 12/10/22 12/10/22 Range/Units 14:55 14:55 16:53 WBC (4.0-10.5) x10^3/uL RBC (4.1-5.6) x10^6/uL Hgb (12.5-18.0) g/dL Hct (42-50) % MCV (78-100) fL MCH (26-32) pg MCHC (32-36) g/dL RDW (11.5-14.0) % Plt Count (150-450) x10^3/uL MPV (7.5-11.0) fL Gran % (36.0-66.0) % Immature Gran % (Auto) (0.00-0.4) % Nucleat RBC Rel Count (0.00-0.1) % Eos # (Auto) (0-0.5) x10^3/uL Immature Gran # (Auto) (0.00-0.03) x10^3u/L Absolute Lymphs (auto) (1.0-4.6) x10^3/uL Absolute Monos (auto) (0.0-1.3) x10^3/uL Absolute Nucleated RBC (0.00-0.01) x10^3u/L Lymphocytes % (24.0-44.0) % Monocytes % (0.0-12.0) % Eosinophils % (0.00-5.0) % Basophils % (0.0-0.4) % Absolute Granulocytes (1.4-6.9) x10^3/uL Basophils # (0-0.4) x10^3/uL Sodium 135 L (137-145) mmol/L Sodium Direct (138-146) mmol/L Potassium 4.1 (3.5-5.1) mmol/L Chloride 101 (98-107) mmol/L Carbon Dioxide 28 (22-30) mmol/L Anion Gap 10.3 (5-15) MEQ/L BUN 18 (9-20) mg/dL Venous BUN (8-26) mg/dL Creatinine 1.53 H (0.66-1.25) mg/dL Estimated GFR 47.7 ML/MIN Glucose 173 H (74-106) mg/dL POC Glucometer 145 H (74 to 106) mg/dL Lactic Acid (0.4-2.0) Calcium 9.2 (8.4-10.2) mg/dL Ionized Calcium (1.12-1.32) mmol/L Total Bilirubin 0.70 (0.2-1.3) mg/dL AST 42 (17-59) U/L ALT 24 (0-50) U/L Alkaline Phosphatase 110 (38-126) U/L Troponin I 3.410 H* (0.000-0.034) ng/mL NT-Pro-B Natriuret Pep Serum Total Protein 7.2 (6.3-8.2) g/dL Albumin 4.1 (3.5-5.0) g/dL Urine Color Yellow (Yellow) Urine Appearance Clear (Clear) Urine pH 6.0 (4.6-8.0) Ur Specific Clifford 1.020 (1.005-1.030) Urine Protein 30 (Negative) Urine Glucose (UA) Negative (Negative) mg/dL Urine Ketones Trace A (Negative) Urine Blood Negative (Negative) Urine Nitrite Negative (Negative) Urine Bilirubin Negative (Negative) Urine Urobilinogen 1.0 A (0.2) mg/dL Ur Leukocyte Esterase Negative (Negative) U Hyaline Cast (Auto) 26-50 A (0-2) /LPF Urine Microscopic RBC 0-2 (0-5) /HPF Urine Microscopic WBC 0-2 (0-5) /HPF Ur Epithelial Cells None Seen (None Seen) /HPF Urine Bacteria None Seen (None Seen) /HPF Urine Culture Reflexed NO (NO) 12/10/22 12/10/22 12/11/22 Range/Units 21:53 22:41 08:33 WBC (4.0-10.5) x10^3/uL RBC (4.1-5.6) x10^6/uL Hgb (12.5-18.0) g/dL Hct (42-50) % MCV (78-100) fL MCH (26-32) pg MCHC (32-36) g/dL RDW (11.5-14.0) % Plt Count (150-450) x10^3/uL MPV (7.5-11.0) fL Gran % (36.0-66.0) % Immature Gran % (Auto) (0.00-0.4) % Nucleat RBC Rel Count (0.00-0.1) % Eos # (Auto) (0-0.5) x10^3/uL Immature Gran # (Auto) (0.00-0.03) x10^3u/L Absolute Lymphs (auto) (1.0-4.6) x10^3/uL Absolute Monos (auto) (0.0-1.3) x10^3/uL Absolute Nucleated RBC (0.00-0.01) x10^3u/L Lymphocytes % (24.0-44.0) % Monocytes % (0.0-12.0) % Eosinophils % (0.00-5.0) % Basophils % (0.0-0.4) % Absolute Granulocytes (1.4-6.9) x10^3/uL Basophils # (0-0.4) x10^3/uL Sodium (137-145) mmol/L Sodium Direct (138-146) mmol/L Potassium (3.5-5.1) mmol/L Chloride (98-107) mmol/L Carbon Dioxide (22-30) mmol/L Anion Gap (5-15) MEQ/L BUN (9-20) mg/dL Venous BUN (8-26) mg/dL Creatinine (0.66-1.25) mg/dL Estimated GFR ML/MIN Glucose (74-106) mg/dL POC Glucometer 146 H 108 H (74 to 106) mg/dL Lactic Acid (0.4-2.0) Calcium (8.4-10.2) mg/dL Ionized Calcium (1.12-1.32) mmol/L Total Bilirubin (0.2-1.3) mg/dL AST (17-59) U/L ALT (0-50) U/L Alkaline Phosphatase (38-126) U/L Troponin I 2.500 H* (0.000-0.034) ng/mL NT-Pro-B Natriuret Pep Serum Total Protein (6.3-8.2) g/dL Albumin (3.5-5.0) g/dL Urine Color (Yellow) Urine Appearance (Clear) Urine pH (4.6-8.0) Ur Specific Clifford (1.005-1.030) Urine Protein (Negative) Urine Glucose (UA) (Negative) mg/dL Urine Ketones (Negative) Urine Blood (Negative) Urine Nitrite (Negative) Urine Bilirubin (Negative) Urine Urobilinogen (0.2) mg/dL Ur Leukocyte Esterase (Negative) U Hyaline Cast (Auto) (0-2) /LPF Urine Microscopic RBC (0-5) /HPF Urine Microscopic WBC (0-5) /HPF Ur Epithelial Cells (None Seen) /HPF Urine Bacteria (None Seen) /HPF Urine Culture Reflexed (NO) 12/11/22 12/11/22 12/11/22 Range/Units 08:45 08:45 11:04 WBC 5.8 (4.0-10.5) x10^3/uL RBC 4.48 (4.1-5.6) x10^6/uL Hgb 13.5 (12.5-18.0) g/dL Hct 41.1 L (42-50) % MCV 91.7 D (78-100) fL MCH 30.1 (26-32) pg MCHC 32.8 (32-36) g/dL RDW 13.8 (11.5-14.0) % Plt Count 143 L (150-450) x10^3/uL MPV 9.3 (7.5-11.0) fL Gran % 60.2 (36.0-66.0) % Immature Gran % (Auto) 0.3 (0.00-0.4) % Nucleat RBC Rel Count 0.0 (0.00-0.1) % Eos # (Auto) 0.21 (0-0.5) x10^3/uL Immature Gran # (Auto) 0.02 (0.00-0.03) x10^3u/L Absolute Lymphs (auto) 1.46 (1.0-4.6) x10^3/uL Absolute Monos (auto) 0.58 (0.0-1.3) x10^3/uL Absolute Nucleated RBC 0.00 (0.00-0.01) x10^3u/L Lymphocytes % 25.4 (24.0-44.0) % Monocytes % 10.1 (0.0-12.0) % Eosinophils % 3.7 (0.00-5.0) % Basophils % 0.3 (0.0-0.4) % Absolute Granulocytes 3.46 (1.4-6.9) x10^3/uL Basophils # 0.02 (0-0.4) x10^3/uL Sodium (137-145) mmol/L Sodium Direct 138 (138-146) mmol/L Potassium 3.3 L (3.5-5.1) mmol/L Chloride 100 (98-107) mmol/L Carbon Dioxide 27 (22-30) mmol/L Anion Gap (5-15) MEQ/L BUN (9-20) mg/dL Venous BUN 26 (8-26) mg/dL Creatinine 1.7 H (0.66-1.25) mg/dL Estimated GFR ML/MIN Glucose 113 H (74-106) mg/dL POC Glucometer 128 H (74 to 106) mg/dL Lactic Acid (0.4-2.0) Calcium (8.4-10.2) mg/dL Ionized Calcium 1.15 (1.12-1.32) mmol/L Total Bilirubin (0.2-1.3) mg/dL AST (17-59) U/L ALT (0-50) U/L Alkaline Phosphatase (38-126) U/L Troponin I (0.000-0.034) ng/mL NT-Pro-B Natriuret Pep Pending Serum Total Protein (6.3-8.2) g/dL Albumin (3.5-5.0) g/dL Urine Color (Yellow) Urine Appearance (Clear) Urine pH (4.6-8.0) Ur Specific Clifford (1.005-1.030) Urine Protein (Negative) Urine Glucose (UA) (Negative) mg/dL Urine Ketones (Negative) Urine Blood (Negative) Urine Nitrite (Negative) Urine Bilirubin (Negative) Urine Urobilinogen (0.2) mg/dL Ur Leukocyte Esterase (Negative) U Hyaline Cast (Auto) (0-2) /LPF Urine Microscopic RBC (0-5) /HPF Urine Microscopic WBC (0-5) /HPF Ur Epithelial Cells (None Seen) /HPF Urine Bacteria (None Seen) /HPF Urine Culture Reflexed (NO) Radiology Exams: Radiology Procedures Category Date Time Status CHEST 1 VIEW (PORTABLE) Urgent Exams 12/11/22 08:52 Completed ECHO W/2D AND DOPPLER [US] Routine Exams 12/11/22 08:53 Taken HEAD WITHOUT CONTRAST [CT] Stat Exams 12/10/22 14:43 Completed US ABDOMEN LIMITED [ABDOMINAL-LIMITED] [US] Urgent Exams 12/11/22 10:13 Completed Multi-Disciplinary Progress Notes: Multi-Disciplinary Progress Notes 12/11/22 09:47 Case Management Note by Swathi Serrano S/W - SHE REPORTS SHE IS RETIRED AND CAN BE WITH PATIENT 15/06 AT HOME IF NEEDED. NO CHANGE IN DC PLANS AT THIS TIME Initialized on 12/11/22 09:47 - END OF NOTE Assessment/Plan (1) Hypertensive emergency Current Visit: Yes Status: Acute Assessment & Plan: resolved with meds yesterday; have decreased amlodipine from 10mg to 5mg daily today. Still on lisinopril 10mg (also new). Code(s): I16.1 - HYPERTENSIVE EMERGENCY (2) Arm pain Current Visit: Yes Status: Resolved Qualifiers: Laterality: bilateral Qualified Code(s): M79.601 - Pain in right arm; M79.602 - Pain in left arm (3) Chronic renal insufficiency Current Visit: Yes Status: Chronic Code(s): N18.9 - CHRONIC KIDNEY DISEASE, UNSPECIFIED (4) Hyponatremia Current Visit: Yes Status: Acute Code(s): E87.1 - HYPO-OSMOLALITY AND HYPONATREMIA (5) Abdominal pain Current Visit: Yes Status: Acute Qualifiers: Abdominal location: right upper quadrant Qualified Code(s): R10.11 - Right upper quadrant pain Assessment & Plan: u/s shows thickened GB - will need surgery consult outpatient. Code(s): R10.9 - UNSPECIFIED ABDOMINAL PAIN (6) Elevated troponin Current Visit: Yes Status: Acute Assessment & Plan: Going down. Dr. Olvera said as long as it's dropping and pt without chest pain, can get heart cath outpatient. If unstable or chest pain, transfer to [facility] or [place] for possible heart cath. Code(s): R77.8 - OTHER SPECIFIED ABNORMALITIES OF PLASMA PROTEINS
--- NOTE | 2022-12-11 14:16 | ECHO ---
Transthoracic echocardiographic examination and color Doppler was done on 12/11/2022. INDICATION: Coronary artery disease, elevated troponin I. IMPRESSION: 1) REGIONAL WALL MOTION ABNORMALITY. MILD HYPOKINESIA OF THE MID TO DISTAL ANTEROSEPTAL WALL. ESTIMATED GLOBAL LEFT VENTRICULAR EJECTION FRACTION BETWEEN 45 TO 50%. 2) TRACE MITRAL REGURGITATION. 3) TRACE TRICUSPID REGURGITATION. 4) MILD PULMONIC INSUFFICIENCY. 5) LEFT VENTRICULAR HYPERTROPHY. 6) LEFT ATRIAL ENLARGEMENT. The left ventricle is visualized and demonstrated regional wall motion abnormality with mild hypokinesia of the mid to distal anteroseptal wall. The estimated global left ventricular ejection fraction around 45 to 50%. There is concentric left ventricular hypertrophy. The mitral valve is seen and this opens adequately. There trace mitral regurgitation. The left atrium is enlarged. The aortic valve is sclerotic but opens adequately. The right side chambers are normal. There is trace tricuspid regurgitation. There is also mild pulmonic insufficiency.
[2022-12-11] MEDS ORDERED: MORPHINE SULFATE 4 MG INJ IV PRN (18:26)
[2022-12-12 05:11] LABS: Absolute Neutrophil Ct (ANC) 3.72 x10^3/uL (1.4-6.9); Basophil (Absolute #) 0.03 x10^3/uL (0-0.4); Eosinophil % 4.9 % (0.00-5.0); Eosinophil (Absolute #) 0.28 x10^3/uL (0-0.5); Hematocrit 41.1 % (42-50); Hemoglobin 13.6 g/dL (12.5-18.0); Lymphocyte (Absolute #) 1.04 x10^3/uL (1.0-4.6); Lymphocytes % 18.3 % (24.0-44.0); Mean Cell Volume 89.7 fL (78-100); Mean Corpuscular Hemoglobin 29.7 pg (26-32); Mean Corpuscular Hgb Concent. 33.1 g/dL (32-36); Mean Platelet Volume 9.5 fL (7.5-11.0); Monocyte (Absolute #) 0.61 x10^3/uL (0.0-1.3); Monocytes % 10.7 % (0.0-12.0); Neutrophil % 65.4 % (36.0-66.0); Platelet Count 132 x10^3/uL (150-450); Red Blood Count 4.58 x10^6/uL (4.1-5.6); White Blood Count 5.7 x10^3/uL (4.0-10.5)
[2022-12-12 05:25] LABS: ANION GAP 9.1 MEQ/L (5-15); Calcium 8.9 mg/dL (8.4-10.2); Creatinine 1 1.42 mg/dL (0.66-1.25); EST GLOMERULAR FILTRATION RATE 51.9 ML/MIN; Potassium 3.9 mmol/L (3.5-5.1)
[2022-12-12] MEDS: Glucophage 500 MG PO SCH (07:35)
--- NOTE | 2022-12-12 08:20 | PCM.NOTE ---
Date and Time: 12/12/22 0816 Subjective Assessment: patient is doing much better today. reports he was much more clear last night and this morning. he is oriented to place and self, not to time. thinks it is April and 2022, or he isn't certain. he denies chest pain today, overall feels well this morning. Objective Exam General Appearance: no apparent distress Neurologic Exam: alert, cooperative Respiratory Exam: normal breath sounds, lungs clear, No respiratory distress Cardiovascular Exam: regular rate/rhythm, normal heart sounds Gastrointestinal/Abdomen Exam: soft, No tenderness, No mass OBJECTIVE DATA Vital Signs: Vital Signs - 24 hr Temp Pulse Resp BP Pulse Ox 12/12/22 07:00 97.7 F 74 18 159/70 96 12/12/22 04:00 98.3 F 70 20 151/82 98 12/11/22 23:48 98.1 F 69 21 187/89 97 12/11/22 20:00 98.2 F 101 H 18 128/68 98 12/11/22 16:00 97.7 F 78 18 176/90 95 12/11/22 11:55 97.1 F 80 17 94/65 93 L Pain Assessment - Last Documented Pain Intensity 0 Pain Scale Used 0-10 Pain Scale Intake and Output: Intake & Output 12/09/22 12/10/22 12/11/22 12/12/22 11:59 11:59 11:59 11:59 Intake Total 240 1910 1320 1480 Output Total 975 Balance 240 1910 1320 505 Weight 127.5 kg 126 kg 126.5 kg Lab Results: Lab Results-Last 24 Hours 12/11/22 12/11/22 12/11/22 Range/Units 08:33 08:45 08:45 WBC 5.8 (4.0-10.5) x10^3/uL RBC 4.48 (4.1-5.6) x10^6/uL Hgb 13.5 (12.5-18.0) g/dL Hct 41.1 L (42-50) % MCV 91.7 D (78-100) fL MCH 30.1 (26-32) pg MCHC 32.8 (32-36) g/dL RDW 13.8 (11.5-14.0) % Plt Count 143 L (150-450) x10^3/uL MPV 9.3 (7.5-11.0) fL Gran % 60.2 (36.0-66.0) % Immature Gran % (Auto) 0.3 (0.00-0.4) % Nucleat RBC Rel Count 0.0 (0.00-0.1) % Eos # (Auto) 0.21 (0-0.5) x10^3/uL Immature Gran # (Auto) 0.02 (0.00-0.03) x10^3u/L Absolute Lymphs (auto) 1.46 (1.0-4.6) x10^3/uL Absolute Monos (auto) 0.58 (0.0-1.3) x10^3/uL Absolute Nucleated RBC 0.00 (0.00-0.01) x10^3u/L Lymphocytes % 25.4 (24.0-44.0) % Monocytes % 10.1 (0.0-12.0) % Eosinophils % 3.7 (0.00-5.0) % Basophils % 0.3 (0.0-0.4) % Absolute Granulocytes 3.46 (1.4-6.9) x10^3/uL Basophils # 0.02 (0-0.4) x10^3/uL Sodium (137-145) mmol/L Sodium Direct 138 (138-146) mmol/L Potassium 3.3 L (3.5-4.9) mmol/L Chloride 100 (98-109) mmol/L Carbon Dioxide 27 (24-29) mmol/L Anion Gap (5-15) MEQ/L BUN (9-20) mg/dL Venous BUN 26 (8-26) mg/dL Creatinine 1.7 H (0.6-1.3) mg/dL Estimated GFR ML/MIN Glucose 113 H (70-105) mg/dL POC Glucometer 108 H (74 to 106) mg/dL Calcium (8.4-10.2) mg/dL Ionized Calcium 1.15 (1.12-1.32) mmol/L NT-Pro-B Natriuret Pep 1600 H (0-900) pg/mL 12/11/22 12/11/22 12/11/22 Range/Units 11:04 16:28 18:25 WBC (4.0-10.5) x10^3/uL RBC (4.1-5.6) x10^6/uL Hgb (12.5-18.0) g/dL Hct (42-50) % MCV (78-100) fL MCH (26-32) pg MCHC (32-36) g/dL RDW (11.5-14.0) % Plt Count (150-450) x10^3/uL MPV (7.5-11.0) fL Gran % (36.0-66.0) % Immature Gran % (Auto) (0.00-0.4) % Nucleat RBC Rel Count (0.00-0.1) % Eos # (Auto) (0-0.5) x10^3/uL Immature Gran # (Auto) (0.00-0.03) x10^3u/L Absolute Lymphs (auto) (1.0-4.6) x10^3/uL Absolute Monos (auto) (0.0-1.3) x10^3/uL Absolute Nucleated RBC (0.00-0.01) x10^3u/L Lymphocytes % (24.0-44.0) % Monocytes % (0.0-12.0) % Eosinophils % (0.00-5.0) % Basophils % (0.0-0.4) % Absolute Granulocytes (1.4-6.9) x10^3/uL Basophils # (0-0.4) x10^3/uL Sodium (137-145) mmol/L Sodium Direct (138-146) mmol/L Potassium 3.6 (3.5-4.9) mmol/L Chloride (98-109) mmol/L Carbon Dioxide (24-29) mmol/L Anion Gap (5-15) MEQ/L BUN (9-20) mg/dL Venous BUN (8-26) mg/dL Creatinine (0.6-1.3) mg/dL Estimated GFR ML/MIN Glucose (70-105) mg/dL POC Glucometer 128 H 113 H (74 to 106) mg/dL Calcium (8.4-10.2) mg/dL Ionized Calcium (1.12-1.32) mmol/L NT-Pro-B Natriuret Pep (0-900) pg/mL 12/11/22 12/11/22 12/12/22 Range/Units 22:04 22:30 04:22 WBC 5.7 (4.0-10.5) x10^3/uL RBC 4.58 (4.1-5.6) x10^6/uL Hgb 13.6 (12.5-18.0) g/dL Hct 41.1 L (42-50) % MCV 89.7 (78-100) fL MCH 29.7 (26-32) pg MCHC 33.1 (32-36) g/dL RDW 14.0 (11.5-14.0) % Plt Count 132 L (150-450) x10^3/uL MPV 9.5 (7.5-11.0) fL Gran % 65.4 (36.0-66.0) % Immature Gran % (Auto) 0.2 (0.00-0.4) % Nucleat RBC Rel Count 0.0 (0.00-0.1) % Eos # (Auto) 0.28 (0-0.5) x10^3/uL Immature Gran # (Auto) 0.01 (0.00-0.03) x10^3u/L Absolute Lymphs (auto) 1.04 (1.0-4.6) x10^3/uL Absolute Monos (auto) 0.61 (0.0-1.3) x10^3/uL Absolute Nucleated RBC 0.00 (0.00-0.01) x10^3u/L Lymphocytes % 18.3 L (24.0-44.0) % Monocytes % 10.7 (0.0-12.0) % Eosinophils % 4.9 (0.00-5.0) % Basophils % 0.5 (0.0-0.4) % Absolute Granulocytes 3.72 (1.4-6.9) x10^3/uL Basophils # 0.03 (0-0.4) x10^3/uL Sodium (137-145) mmol/L Sodium Direct (138-146) mmol/L Potassium 3.6 (3.5-4.9) mmol/L Chloride (98-109) mmol/L Carbon Dioxide (24-29) mmol/L Anion Gap (5-15) MEQ/L BUN (9-20) mg/dL Venous BUN (8-26) mg/dL Creatinine (0.6-1.3) mg/dL Estimated GFR ML/MIN Glucose (70-105) mg/dL POC Glucometer 181 H (74 to 106) mg/dL Calcium (8.4-10.2) mg/dL Ionized Calcium (1.12-1.32) mmol/L NT-Pro-B Natriuret Pep (0-900) pg/mL 12/12/22 12/12/22 Range/Units 04:22 06:42 WBC (4.0-10.5) x10^3/uL RBC (4.1-5.6) x10^6/uL Hgb (12.5-18.0) g/dL Hct (42-50) % MCV (78-100) fL MCH (26-32) pg MCHC (32-36) g/dL RDW (11.5-14.0) % Plt Count (150-450) x10^3/uL MPV (7.5-11.0) fL Gran % (36.0-66.0) % Immature Gran % (Auto) (0.00-0.4) % Nucleat RBC Rel Count (0.00-0.1) % Eos # (Auto) (0-0.5) x10^3/uL Immature Gran # (Auto) (0.00-0.03) x10^3u/L Absolute Lymphs (auto) (1.0-4.6) x10^3/uL Absolute Monos (auto) (0.0-1.3) x10^3/uL Absolute Nucleated RBC (0.00-0.01) x10^3u/L Lymphocytes % (24.0-44.0) % Monocytes % (0.0-12.0) % Eosinophils % (0.00-5.0) % Basophils % (0.0-0.4) % Absolute Granulocytes (1.4-6.9) x10^3/uL Basophils # (0-0.4) x10^3/uL Sodium 136 L (137-145) mmol/L Sodium Direct (138-146) mmol/L Potassium 3.9 (3.5-4.9) mmol/L Chloride 104 (98-109) mmol/L Carbon Dioxide 26 (24-29) mmol/L Anion Gap 9.1 (5-15) MEQ/L BUN 21 H (9-20) mg/dL Venous BUN (8-26) mg/dL Creatinine 1.42 H (0.6-1.3) mg/dL Estimated GFR 51.9 ML/MIN Glucose 140 H (70-105) mg/dL POC Glucometer 128 H (74 to 106) mg/dL Calcium 8.9 (8.4-10.2) mg/dL Ionized Calcium (1.12-1.32) mmol/L NT-Pro-B Natriuret Pep (0-900) pg/mL Radiology Exams: Radiology Procedures Category Date Time Status CHEST 1 VIEW (PORTABLE) Urgent Exams 12/11/22 08:52 Completed ECHO W/2D AND DOPPLER [US] Routine Exams 12/11/22 08:53 Completed HEAD WITHOUT CONTRAST [CT] Stat Exams 12/10/22 14:43 Completed US ABDOMEN LIMITED [ABDOMINAL-LIMITED] [US] Urgent Exams 12/11/22 10:13 Completed Multi-Disciplinary Progress Notes: Multi-Disciplinary Progress Notes 12/11/22 09:47 Case Management Note by Swathi Serrano S/W - SHE REPORTS SHE IS RETIRED AND CAN BE WITH PATIENT 15/06 AT HOME IF NEEDED. NO CHANGE IN DC PLANS AT THIS TIME Initialized on 12/11/22 09:47 - END OF NOTE Assessment/Plan (1) Elevated troponin Current Visit: Yes Status: Acute Assessment & Plan: patient is currently pain free, echo shows hypokinesia of septum, EF 45 to 50% will repeat troponin, plan is outpatient cath per Dr Olvera, has no pain Code(s): R77.8 - OTHER SPECIFIED ABNORMALITIES OF PLASMA PROTEINS (2) Hypertensive emergency Current Visit: Yes Status: Acute Assessment & Plan: increase lisinopril from 10mg to 20mg daily, has coexistent diabetes Code(s): I16.1 - HYPERTENSIVE EMERGENCY (3) Chronic renal insufficiency Current Visit: Yes Status: Chronic Assessment & Plan: gfr improving. Code(s): N18.9 - CHRONIC KIDNEY DISEASE, UNSPECIFIED
[2022-12-12] MEDS: Klor Con PO SCH (09:56)
[2022-12-12] MEDS: NORVASC 5 MG PO SCH (09:57)
[2022-12-12] MEDS: ECOTRIN 81 MG PO SCH (09:57)
[2022-12-12] MEDS: Lopressor 50 MG PO SCH (09:58)
[2022-12-12] MEDS: Micronase 5 MG PO SCH (09:58)
[2022-12-12] MEDS: ELIQUIS 2.5 MG TABLET PO SCH (09:59)
[2022-12-12] MEDS ORDERED: Zestril 20 MG PO SCH (10:00)
[2022-12-12] MEDS ORDERED: xanAX 0.25 MG PO PRN (10:33)
[2022-12-12] MEDS ORDERED: xanAX 0.25 MG PO ONE (10:35)
[2022-12-12 11:12] VITALS: BP 130/62; PULSE 65; O2SAT 94
--- NOTE | 2022-12-12 13:38 | PCM.DS ---
Discharge Summary Date of Admission: 12/10/22 15:59 Admitting Physician: ENOCH TEMPLE Primary Care Provider: TAMAR BARBOSA Allergies Allergies No Known Drug Allergies Allergy (Verified 12/09/22 05:08) Hospital Summary - Hospital Course Hospital Course: patient was admitted with elevated bp and elevated troponin, no chest pain. troponin trending down with improved renal function and better bp control. had some confusion which has resolved - Vitals & Intake/Output Vital Signs: Vital Signs Temperature 97.0 F 12/12/22 11:12 Pulse Rate 65 12/12/22 11:12 Respiratory Rate 18 12/12/22 11:12 Blood Pressure 130/62 12/12/22 11:12 O2 Sat by Pulse Oximetry 94 L 12/12/22 11:12 Intake & Output: Intake & Output 12/10/22 12/11/22 12/12/22 12/13/22 11:59 11:59 11:59 11:59 Intake Total 1910 1320 1720 360 Output Total 975 Balance 1910 1320 745 360 Weight 126 kg 126.5 kg - Lab Result Diagrams: 12/12/22 04:22 12/12/22 04:22 Lab Results-Last 24 Hrs: Lab Results-Last 24 Hours 12/11/22 12/11/22 12/11/22 Range/Units 08:45 16:28 18:25 WBC (4.0-10.5) x10^3/uL RBC (4.1-5.6) x10^6/uL Hgb (12.5-18.0) g/dL Hct (42-50) % MCV (78-100) fL MCH (26-32) pg MCHC (32-36) g/dL RDW (11.5-14.0) % Plt Count (150-450) x10^3/uL MPV (7.5-11.0) fL Gran % (36.0-66.0) % Immature Gran % (Auto) (0.00-0.4) % Nucleat RBC Rel Count (0.00-0.1) % Eos # (Auto) (0-0.5) x10^3/uL Immature Gran # (Auto) (0.00-0.03) x10^3u/L Absolute Lymphs (auto) (1.0-4.6) x10^3/uL Absolute Monos (auto) (0.0-1.3) x10^3/uL Absolute Nucleated RBC (0.00-0.01) x10^3u/L Lymphocytes % (24.0-44.0) % Monocytes % (0.0-12.0) % Eosinophils % (0.00-5.0) % Basophils % (0.0-0.4) % Absolute Granulocytes (1.4-6.9) x10^3/uL Basophils # (0-0.4) x10^3/uL Sodium (137-145) mmol/L Potassium 3.6 (3.5-5.1) mmol/L Chloride (98-107) mmol/L Carbon Dioxide (22-30) mmol/L Anion Gap (5-15) MEQ/L BUN (9-20) mg/dL Creatinine (0.66-1.25) mg/dL Estimated GFR ML/MIN Glucose (74-106) mg/dL POC Glucometer 113 H (74 to 106) mg/dL Calcium (8.4-10.2) mg/dL Troponin I (0.000-0.034) ng/mL NT-Pro-B Natriuret Pep 1600 H (0-900) pg/mL 12/11/22 12/11/22 12/12/22 Range/Units 22:04 22:30 04:22 WBC 5.7 (4.0-10.5) x10^3/uL RBC 4.58 (4.1-5.6) x10^6/uL Hgb 13.6 (12.5-18.0) g/dL Hct 41.1 L (42-50) % MCV 89.7 (78-100) fL MCH 29.7 (26-32) pg MCHC 33.1 (32-36) g/dL RDW 14.0 (11.5-14.0) % Plt Count 132 L (150-450) x10^3/uL MPV 9.5 (7.5-11.0) fL Gran % 65.4 (36.0-66.0) % Immature Gran % (Auto) 0.2 (0.00-0.4) % Nucleat RBC Rel Count 0.0 (0.00-0.1) % Eos # (Auto) 0.28 (0-0.5) x10^3/uL Immature Gran # (Auto) 0.01 (0.00-0.03) x10^3u/L Absolute Lymphs (auto) 1.04 (1.0-4.6) x10^3/uL Absolute Monos (auto) 0.61 (0.0-1.3) x10^3/uL Absolute Nucleated RBC 0.00 (0.00-0.01) x10^3u/L Lymphocytes % 18.3 L (24.0-44.0) % Monocytes % 10.7 (0.0-12.0) % Eosinophils % 4.9 (0.00-5.0) % Basophils % 0.5 (0.0-0.4) % Absolute Granulocytes 3.72 (1.4-6.9) x10^3/uL Basophils # 0.03 (0-0.4) x10^3/uL Sodium (137-145) mmol/L Potassium 3.6 (3.5-5.1) mmol/L Chloride (98-107) mmol/L Carbon Dioxide (22-30) mmol/L Anion Gap (5-15) MEQ/L BUN (9-20) mg/dL Creatinine (0.66-1.25) mg/dL Estimated GFR ML/MIN Glucose (74-106) mg/dL POC Glucometer 181 H (74 to 106) mg/dL Calcium (8.4-10.2) mg/dL Troponin I (0.000-0.034) ng/mL NT-Pro-B Natriuret Pep (0-900) pg/mL 12/12/22 12/12/22 12/12/22 Range/Units 04:22 04:22 06:42 WBC (4.0-10.5) x10^3/uL RBC (4.1-5.6) x10^6/uL Hgb (12.5-18.0) g/dL Hct (42-50) % MCV (78-100) fL MCH (26-32) pg MCHC (32-36) g/dL RDW (11.5-14.0) % Plt Count (150-450) x10^3/uL MPV (7.5-11.0) fL Gran % (36.0-66.0) % Immature Gran % (Auto) (0.00-0.4) % Nucleat RBC Rel Count (0.00-0.1) % Eos # (Auto) (0-0.5) x10^3/uL Immature Gran # (Auto) (0.00-0.03) x10^3u/L Absolute Lymphs (auto) (1.0-4.6) x10^3/uL Absolute Monos (auto) (0.0-1.3) x10^3/uL Absolute Nucleated RBC (0.00-0.01) x10^3u/L Lymphocytes % (24.0-44.0) % Monocytes % (0.0-12.0) % Eosinophils % (0.00-5.0) % Basophils % (0.0-0.4) % Absolute Granulocytes (1.4-6.9) x10^3/uL Basophils # (0-0.4) x10^3/uL Sodium 136 L (137-145) mmol/L Potassium 3.9 (3.5-5.1) mmol/L Chloride 104 (98-107) mmol/L Carbon Dioxide 26 (22-30) mmol/L Anion Gap 9.1 (5-15) MEQ/L BUN 21 H (9-20) mg/dL Creatinine 1.42 H (0.66-1.25) mg/dL Estimated GFR 51.9 ML/MIN Glucose 140 H (74-106) mg/dL POC Glucometer 128 H (74 to 106) mg/dL Calcium 8.9 (8.4-10.2) mg/dL Troponin I 1.280 H* (0.000-0.034) ng/mL NT-Pro-B Natriuret Pep (0-900) pg/mL 12/12/22 Range/Units 10:53 WBC (4.0-10.5) x10^3/uL RBC (4.1-5.6) x10^6/uL Hgb (12.5-18.0) g/dL Hct (42-50) % MCV (78-100) fL MCH (26-32) pg MCHC (32-36) g/dL RDW (11.5-14.0) % Plt Count (150-450) x10^3/uL MPV (7.5-11.0) fL Gran % (36.0-66.0) % Immature Gran % (Auto) (0.00-0.4) % Nucleat RBC Rel Count (0.00-0.1) % Eos # (Auto) (0-0.5) x10^3/uL Immature Gran # (Auto) (0.00-0.03) x10^3u/L Absolute Lymphs (auto) (1.0-4.6) x10^3/uL Absolute Monos (auto) (0.0-1.3) x10^3/uL Absolute Nucleated RBC (0.00-0.01) x10^3u/L Lymphocytes % (24.0-44.0) % Monocytes % (0.0-12.0) % Eosinophils % (0.00-5.0) % Basophils % (0.0-0.4) % Absolute Granulocytes (1.4-6.9) x10^3/uL Basophils # (0-0.4) x10^3/uL Sodium (137-145) mmol/L Potassium (3.5-5.1) mmol/L Chloride (98-107) mmol/L Carbon Dioxide (22-30) mmol/L Anion Gap (5-15) MEQ/L BUN (9-20) mg/dL Creatinine (0.66-1.25) mg/dL Estimated GFR ML/MIN Glucose (74-106) mg/dL POC Glucometer 173 H (74 to 106) mg/dL Calcium (8.4-10.2) mg/dL Troponin I (0.000-0.034) ng/mL NT-Pro-B Natriuret Pep (0-900) pg/mL Micro Results-Entire Visit: Accuchecks Date 12/12/22 Date 12/11/22 Time 06:58 - Radiology Exams Ordered Rad Exams-Entire Visit: Radiology Procedures Category Date Time Status CHEST 1 VIEW (PORTABLE) Urgent Exams 12/11/22 08:52 Completed ECHO W/2D AND DOPPLER [US] Routine Exams 12/11/22 08:53 Completed HEAD WITHOUT CONTRAST [CT] Stat Exams 12/10/22 14:43 Completed US ABDOMEN LIMITED [ABDOMINAL-LIMITED] [US] Urgent Exams 12/11/22 10:13 Completed - Procedures and Test Procedures and Tests throughout Hospitalization: Therapy Orders & Screens 12/09/22 04:27 EKG Q8HX2,QAMX3,PRN Comment: 12/09/22 06:46 EKG ROUTINE Comment: Diagnosis: ACS, elevated troponin 12/10/22 05:00 EKG DAILY Comment: Diagnosis: ACS, elevated troponin 12/10/22 14:44 EKG STAT Comment: Diagnosis: ACS, INCREASED TROPONIN, ABNORMAL EKG 12/11/22 05:00 EKG DAILY Comment: Diagnosis: ACS, elevated troponin 12/12/22 05:00 EKG DAILY Comment: Diagnosis: ACS, elevated troponin Discharge Exam General Appearance: no apparent distress Neurologic Exam: alert, cooperative Eye Exam: PERRL, EOMI, eyes nml inspection Respiratory Exam: normal breath sounds, lungs clear, No respiratory distress Cardiovascular Exam: regular rate/rhythm, normal heart sounds Gastrointestinal/Abdomen Exam: soft, No tenderness, No mass Final Diagnosis/Problem List - Final Discharge Diagnosis/Problem (1) Elevated troponin Current Visit: Yes Status: Acute Code(s): R77.8 - OTHER SPECIFIED ABNORMALITIES OF PLASMA PROTEINS (2) Hypertensive emergency Current Visit: Yes Status: Acute Code(s): I16.1 - HYPERTENSIVE EMERGENCY (3) Chronic renal insufficiency Current Visit: Yes Status: Chronic Code(s): N18.9 - CHRONIC KIDNEY DISEASE, UNSPECIFIED (4) Cholelithiases Current Visit: Yes Status: Acute Assessment & Plan: outpatient surgery consult ordered - Discharge Disposition: Home, Self-Care Condition: Stable Prescriptions: New Lisinopril 20 mg [Zestril 20 MG] 20 mg PO DAILY #30 tablet Continue Amlodipine Besylate 2.5 mg PO BID ALPRAZolam [Alprazolam] 0.125 mg PO BIDPRN PRN PRN Reason: Anxiety Apixaban [Eliquis] 5 mg PO BID Furosemide 40 mg PO 0800,1600 Atorvastatin Calcium 20 mg PO HS Metformin HCl [Fortamet] 1,000 mg PO BID Glyburide 5 mg [Micronase 5 MG] 5 mg PO BID Potassium Chloride [Klor-Con 10] 10 meq PO DAILY Aspirin EC 81 mg [Ecotrin 81 mg] 81 mg PO DAILY Metoprolol Tartrate 50 mg [Lopressor 50 MG] 50 mg PO BID Instructions: Angina (DC) Follow up with: TAMAR BARBOSA [Primary Care Provider] - 12/19/22 1:00 pm VIKRAM SEXTON [ACTIVE STAFF] - 01/06/23 3:45 pm MONTSERRAT PEREZ [ACTIVE STAFF] - 12/25/22 3:55 pm ([facility])
== END 2022-12-12 14:08 | disposition home or self-care (01) ==
LOC: ED 22:13 → MED SURG 12-09 04:27 → OBSVTOIN 12-10 15:59 → INTOOBSV 12-10 15:59
PROVIDERS: ADMIT Family Medicine; ATTEND Family Medicine
DX: R77.8 Other specified abnormalities of plasma proteins (principal); I16.1 Hypertensive emergency; E11.22 Type 2 diabetes mellitus with diabetic chronic kidney disease; I12.9 Hypertensive chronic kidney disease with stage 1 through stage 4 chronic kidney disease, or unspecified chronic kidney disease; N18.9 Chronic kidney disease, unspecified; K80.20 Calculus of gallbladder without cholecystitis without obstruction; I48.91 Unspecified atrial fibrillation; I25.10 Atherosclerotic heart disease of native coronary artery without angina pectoris; I24.9 Acute ischemic heart disease, unspecified; R94.31 Abnormal electrocardiogram [ECG] [EKG]; M79.601 Pain in right arm; M79.602 Pain in left arm; E87.1 Hypo-osmolality and hyponatremia; R10.11 Right upper quadrant pain; Z79.899 Other long term (current) drug therapy; Z79.01 Long term (current) use of anticoagulants; Z20.828 Contact with and (suspected) exposure to other viral communicable diseases
CPT/HCPCS: 0241U; 36415; 70450; 71045; 76705; 80047; 80048; 80053; 80061; 81001; 82947; 83605; 83721; 83880; 84132; 84484; 85025; 85027; 93005; 93041; 93268; 93306; 94760; 99285; G0378; J0360; J1940; A9270-GY

== ENCOUNTER 2024-11-19 18:19 | Emergency (ER) | payer MEDICARE ==
--- NOTE | 2024-11-19 18:27 | ERPHSYRPT ---
- History of Present Illness Time Seen by Provider: 11/19/24 18:27 Source: patient, family Exam Limitations: clinical condition Physician History: This is a 74-year-old white male patient of Dr. Hodges, cellophane tester Dr. Patel, tube washer Dr. Olvera who presents by private vehicle accompanied by his spouse and requested by his spouse to come to the emergency department because she feels he is having worsening confusion. Today he was driving the car and he seemed confused and distant and did not answer her questions. This has been going on for few days. Patient denies head injury. He denies chest pain. He denies shortness of breath. He denies abdominal pain. He denies nausea vomiting and diarrhea. There is been no new medications. Patient does have a h istory of anxiety, chronic atrial fibrillation on Eliquis, diabetes, hyperlipidemia, CHF, coronary artery disease (CABG). NIH stroke scale is 0. Timing/Duration: day(s) (Symptoms over the last few days), worse (Per patient's spouse, symptoms were worse today while the patient was driving a vehicle) Allergies/Adverse Reactions: No Known Drug Allergies Allergy (Verified 11/19/24 18:26) Home Medications: ALPRAZolam [Alprazolam] 0.125 mg PO BIDPRN PRN 05/24/21 [History] Amlodipine Besylate 2.5 mg PO BID 05/24/21 [History] Apixaban [Eliquis] 5 mg PO BID 05/24/21 [History] Atorvastatin Calcium 20 mg PO HS 05/24/21 [History] Furosemide 40 mg PO 0800,1600 05/24/21 [History] Glyburide 5 mg [Micronase 5 MG] 5 mg PO BID 05/24/21 [History] Metformin HCl [Fortamet] 1,000 mg PO BID 05/24/21 [History] Potassium Chloride [Klor-Con 10] 10 meq PO DAILY 05/24/21 [History] Aspirin EC 81 mg [Ecotrin 81 mg] 81 mg PO DAILY 12/08/22 [History] Metoprolol Tartrate 50 mg [Lopressor 50 MG] 50 mg PO BID 12/08/22 [History] Hx Tetanus, Diphtheria Vaccination/Date Given: Yes Hx Influenza Vaccination/Date Given: Yes Hx Pneumococcal Vaccination/Date Given: No Travel Risk - International Travel Have you traveled outside of the country in past 3 weeks: No - Emerging Infectious Disease Are you exhibiting symptoms associated with any current EIDs: No - Review of Systems Constitutional: No Symptoms Eyes: No Symptoms Ears, Nose, & Throat: No Symptoms Respiratory: No Symptoms Cardiac: No Symptoms Abdominal/Gastrointestinal: No Symptoms Genitourinary Symptoms: No Symptoms Musculoskeletal: No Symptoms Skin: No Symptoms Neurological: No Symptoms Psychological: No Symptoms Endocrine: No Symptoms Hematologic/Lymphatic: No Symptoms Immunological/Allergic: No Symptoms All Other Systems: Reviewed and Negative - Past Medical History Pertinent Past Medical History: Yes Neurological History: No Pertinent History ENT History: No Pertinent History Cardiac History: Coronary Artery Disease, High Cholesterol, Hypertension Respiratory History: CHF Endocrine Medical History: Diabetes Type II Musculoskeletal History: No Pertinent History GI Medical History: No Pertinent History History: No Pertinent History Psycho-Social History: No Pertinent History Male Reproductive Disorders: No Pertinent History - Past Surgical History Past Surgical History: Yes Neuro Surgical History: No Pertinent History Cardiac: CABG, Cardiac Catheterization Respiratory: No Pertinent History Gastrointestinal: No Pertinent History Genitourinary: No Pertinent History Musculoskeletal: No Pertinent History Male Surgical History: No Pertinent History Other Surgical History: 5 vessel cabg - Social History Smoking Status: Never smoker Exposure to second hand smoke: No Drug Use: none Patient Lives Alone: No - Nursing Vital Signs Nursing Vital Signs: Initial Vital Signs Temperature 97.3 F 11/19/24 18:30 Pulse Rate 76 11/19/24 18:30 Respiratory Rate 20 11/19/24 18:30 Blood Pressure 190/83 11/19/24 18:30 O2 Sat by Pulse Oximetry 99 11/19/24 18:30 Pain Scale Pain Intensity 0 - Froylan Coma Scale Best Eye Response (Froylan): (4) open spontaneously Best Verbal Response (Froylan): (5) oriented Best Motor Response (Froylan): (6) obeys commands Froylan Total: 15 - Physical Exam General Appearance: no apparent distress, alert, obese Eye Exam: bilateral eye: normal inspection, PERRL, EOMI Ears, Nose, Throat Exam: normal ENT inspection, moist mucous membranes Neck Exam: normal inspection, non-tender, supple, full range of motion Respiratory: normal breath sounds, chest tenderness, lungs clear, respiratory distress, airway intact Cardiovascular: regular rate/rhythm, normal heart sounds, normal peripheral pulses Gastrointestinal: soft, normal bowel sounds, tenderness Rectal Exam: not done Back Exam: normal inspection, normal range of motion, No CVA tenderness, No vertebral tenderness Extremity Exam: normal inspection, normal range of motion, No pelvis stable Mental Status: alert, oriented x 3, cooperative driver messenger Exam: normal hearing, normal speech, PERRL Coordination/Gait: normal finger to nose, normal gait, normal cerebellar function Motor/Sensory: no motor deficit, no sensory deficit, no pronator drift Skin Exam: normal color, warm, dry SpO2 Interpretation: normal O2 Delivery: Room Air - Course Nursing assessment & vital signs reviewed: Yes EKG Interpreted by Me: RATE (72), A-fib, NORMAL AXIS, NORMAL INTERVALS, NORMAL QRS, Other (Acute ischemic changes. QTc is 404) Ordered Tests: Active Orders 24 hr Category Date Time Status EKG-ER Only STAT Care 11/19/24 18:38 Active IV Insertion STAT Care 11/19/24 18:38 Active NPO (ED) STAT Care 11/19/24 18:38 Active Pulse Oximetry (ED) STAT Care 11/19/24 18:38 Active HEAD WITHOUT CONTRAST [CT] Stat Exams 11/19/24 18:38 Completed CBC W DIFF Stat Lab 11/19/24 18:44 Completed CMP Stat Lab 11/19/24 18:44 Completed MAGNESIUM Stat Lab 11/19/24 18:44 Completed PROTIME WITH INR Stat Lab 11/19/24 18:44 Completed TROPONIN Q4H Lab 11/19/24 18:44 Completed TROPONIN Q4H Lab 11/19/24 22:45 Ordered UA W/RFX UR CULTURE Stat Lab 11/19/24 18:44 Completed Lab/Rad Data: Laboratory Result Diagrams 11/19/24 18:44 11/19/24 18:44 Laboratory Results 11/19/24 11/19/24 11/19/24 Range/Units 18:44 18:44 18:44 WBC (4.23-9.07) x10^3/uL RBC (4.63-6.08) x10^6/uL Hgb (13.7-17.5) g/dL Hct (40.1-51.0) % MCV (79.0-92.2) fL MCH (25.7-32.2) pg MCHC (32.3-36.5) g/dL RDW (11.6-14.4) % Plt Count (163-337) x10^3/uL MPV (9.4-12.4) fL Gran % (34.0-67.9) % Immature Gran % (Auto) (0.001-0.429) % Nucleat RBC Rel Count (0.00-0.2) % Eos # (Auto) (0.04-0.54) x10^3/uL Immature Gran # (Auto) (0.001-0.031) x10^3u/L Absolute Lymphs (auto) (1.32-3.57) x10^3/uL Absolute Monos (auto) (0.30-0.82) x10^3/uL Absolute Nucleated RBC (0.00-0.012) x10^3u/L Lymphocytes % (21.8-53.1) % Monocytes % (5.3-12.2) % Eosinophils % (0.8-7.0) % Basophils % (0.2-1.2) % Absolute Granulocytes (1.78-5.38) x10^3/uL Basophils # (0.01-0.08) x10^3/uL PT 11.6 (9.4-12.5) SECONDS INR 1.07 (0.8-3.0) Sodium 135 (135-145) mmol/L Potassium 4.0 (3.5-5.1) mmol/L Chloride 99 (98-107) mmol/L Carbon Dioxide 27 (22-30) mmol/L Anion Gap 13.4 (5-15) MEQ/L BUN 23 H (9-20) mg/dL Creatinine 1.78 H (0.66-1.25) mg/dL Estimated GFR 39.3 ML/MIN Glucose 161 H (74-106) mg/dL Calcium 9.5 (8.4-10.2) mg/dL Magnesium 1.8 (1.6-2.3) mg/dL Total Bilirubin 0.70 (0.2-1.3) mg/dL AST 30 (17-59) U/L ALT 27 (0-50) U/L Alkaline Phosphatase 84 (38-126) U/L Troponin I 0.014 (0.000-0.033) ng/mL Serum Total Protein 7.9 (6.3-8.2) g/dL Albumin 4.5 (3.5-5.0) g/dL Urine Color (Yellow) Urine Appearance (Clear) Urine pH (4.6-8.0) Ur Specific [place] (1.005-1.030) Urine Protein (Negative) Urine Glucose (UA) (Negative) mg/dL Urine Ketones (Negative) Urine Blood (Negative) Urine Nitrite (Negative) Urine Bilirubin (Negative) Urine Urobilinogen (0.2) mg/dL Ur Leukocyte Esterase (Negative) U Hyaline Cast (Auto) (0-2) /LPF Urine Microscopic RBC (0-5) /HPF Urine Microscopic WBC (0-5) /HPF Ur Epithelial Cells (None Seen) /HPF Urine Bacteria (None Seen) /HPF Urine Culture Reflexed (NO) 11/19/24 11/19/24 Range/Units 18:44 18:44 WBC 6.3 (4.23-9.07) x10^3/uL RBC 4.03 L (4.63-6.08) x10^6/uL Hgb 12.4 L (13.7-17.5) g/dL Hct 36.6 L (40.1-51.0) % MCV 90.8 (79.0-92.2) fL MCH 30.8 (25.7-32.2) pg MCHC 33.9 (32.3-36.5) g/dL RDW 14.5 H (11.6-14.4) % Plt Count 137 L (163-337) x10^3/uL MPV 9.1 L (9.4-12.4) fL Gran % 73.4 H (34.0-67.9) % Immature Gran % (Auto) 0.3 (0.001-0.429) % Nucleat RBC Rel Count 0.0 (0.00-0.2) % Eos # (Auto) 0.13 (0.04-0.54) x10^3/uL Immature Gran # (Auto) 0.02 (0.001-0.031) x10^3u/L Absolute Lymphs (auto) 1.00 L (1.32-3.57) x10^3/uL Absolute Monos (auto) 0.50 (0.30-0.82) x10^3/uL Absolute Nucleated RBC 0.00 (0.00-0.012) x10^3u/L Lymphocytes % 15.9 L (21.8-53.1) % Monocytes % 8.0 (5.3-12.2) % Eosinophils % 2.1 (0.8-7.0) % Basophils % 0.3 (0.2-1.2) % Absolute Granulocytes 4.61 (1.78-5.38) x10^3/uL Basophils # 0.02 (0.01-0.08) x10^3/uL PT (9.4-12.5) SECONDS INR (0.8-3.0) Sodium (135-145) mmol/L Potassium (3.5-5.1) mmol/L Chloride (98-107) mmol/L Carbon Dioxide (22-30) mmol/L Anion Gap (5-15) MEQ/L BUN (9-20) mg/dL Creatinine (0.66-1.25) mg/dL Estimated GFR ML/MIN Glucose (74-106) mg/dL Calcium (8.4-10.2) mg/dL Magnesium (1.6-2.3) mg/dL Total Bilirubin (0.2-1.3) mg/dL AST (17-59) U/L ALT (0-50) U/L Alkaline Phosphatase (38-126) U/L Troponin I (0.000-0.033) ng/mL Serum Total Protein (6.3-8.2) g/dL Albumin (3.5-5.0) g/dL Urine Color Yellow (Yellow) Urine Appearance Clear (Clear) Urine pH 5.5 (4.6-8.0) Ur Specific [place] 1.015 (1.005-1.030) Urine Protein Trace A (Negative) Urine Glucose (UA) Negative (Negative) mg/dL Urine Ketones Negative (Negative) Urine Blood Negative (Negative) Urine Nitrite Negative (Negative) Urine Bilirubin Negative (Negative) Urine Urobilinogen 1.0 A (0.2) mg/dL Ur Leukocyte Esterase Negative (Negative) U Hyaline Cast (Auto) NONE SEEN (0-2) /LPF Urine Microscopic RBC 0-2 (0-5) /HPF Urine Microscopic WBC 0-2 (0-5) /HPF Ur Epithelial Cells None Seen (None Seen) /HPF Urine Bacteria None Seen (None Seen) /HPF Urine Culture Reflexed NO (NO) - Progress Progress: improved Progress Note: 11/19/24 18:48 My medical decision making and the assignment of moderate complexity to this patient's medical issue today is based on review of the patient's past medical history, review of the patient's medication list, reviewed patient drug allergy list, history present illness and physical findings on examination. The workup in this patient includes placement of intravenous line, twelve-lead EKG, troponin level, magnesium level, urinalysis, CBC, CMP and CT scan of the head without contrast. Differential diagnosis includes but is not limited to anxiety, depression, s tress, early signs of dementia, acute intracranial abnormality, electrolyte abnormalities, urinary tract infection 11/19/24 20:21 I interpreted the patient's laboratory data results. Based on the laboratory data results, the patient does not have an acute, emergent medical issue. The CT scan of the head without contrast was interpreted by the radiologist and I reviewed the impression. The impression states no acute infarct, hemorrhage or mass effect. 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 Although he may at times be confused, he is medically stable for discharge to home Counseled pt/family regarding: lab results, diagnosis, rad results Medical Desision Making - Independent Historian Additional History obtained from: Spouse - Diagnostic Testing Diagnostic test were ordered, analyzed, and reviewed by me: Yes Radiological Interpretation: Reviewed by me, Teleradiologist Report - Risk of complications Low Risk: Low risk of morbidity from additional dx testing or treatment - Departure Departure Disposition: Home Clinical Impression: Confusion Condition: Stable Critical Care Time: No Referrals: TAMAR HODGES [Primary Care Provider] - Follow up/PCP as directed Additional Instructions: Keep your appointment with Dr. Hodges scheduled for next week. Continue your medications as prescribed.
[2024-11-19 18:44] VITALS: TEMP 97.3; O2SAT 96
[2024-11-19 18:57] LABS: Absolute Neutrophil Ct (ANC) 4.61 x10^3/uL (1.78-5.38); BASOPHIL % 0.3 % (0.2-1.2); Basophil (Absolute #) 0.02 x10^3/uL (0.01-0.08); Eosinophil % 2.1 % (0.8-7.0); Eosinophil (Absolute #) 0.13 x10^3/uL (0.04-0.54); Hematocrit 36.6 % (40.1-51.0); Hemoglobin 12.4 g/dL (13.7-17.5); IMMATURE GRAN # 0.02 x10^3u/L (0.001-0.031); IMMATURE GRAN % 0.3 % (0.001-0.429); Lymphocytes % 15.9 % (21.8-53.1); Mean Cell Volume 90.8 fL (79.0-92.2); Mean Corpuscular Hemoglobin 30.8 pg (25.7-32.2); Mean Corpuscular Hgb Concent. 33.9 g/dL (32.3-36.5); Mean Platelet Volume 9.1 fL (9.4-12.4); Neutrophil % 73.4 % (34.0-67.9); Platelet Count 137 x10^3/uL (163-337); Red Blood Count 4.03 x10^6/uL (4.63-6.08); Red Cell Distribution Width 14.5 % (11.6-14.4); White Blood Count 6.3 x10^3/uL (4.23-9.07)
[2024-11-19 19:05] LABS: Appearance Clear (Clear); Bacteria None Seen /HPF (None Seen); Bilirubin Negative (Negative); Blood Negative (Negative); Epithelial Cells None Seen /HPF (None Seen); Glucose, Urine Negative (Negative); Hyaline Casts NONE SEEN /LPF (0-2); Ketones Negative (Negative); Leukocyte Esterase Negative (Negative); Nitrite Negative (Negative); Ph 5.5 (4.6-8.0); Protein,Urine Dip Trace (Negative); RBC 0-2 /HPF (0-5); Specific Gravity 1.015 (1.005-1.030); WBC 0-2 /HPF (0-5)
[2024-11-19 19:11] LABS: ALBUMIN 4.5 g/dL (3.5-5.0); ANION GAP 13.4 MEQ/L (5-15); BILIRUBIN,TOTAL 0.7 mg/dL (0.2-1.3); Calcium 9.5 mg/dL (8.4-10.2); Creatinine 1 1.78 mg/dL (0.66-1.25); EST GLOMERULAR FILTRATION RATE 39.3 ML/MIN; MAGNESIUM 1.8 mg/dL (1.6-2.3); Total Protein 7.9 g/dL (6.3-8.2)
[2024-11-19 19:12] LABS: INR 1.07 (0.8-3.0); PROTIME 11.6 SECONDS (9.4-12.5)
--- NOTE | 2024-11-19 19:46 | XRAY ---
CLINICAL HISTORY: Confusion COMPARISON: None. TECHNIQUE: An axial non-contrast CT scan of the brain was performed from the skull base to the high parietal region. One of the following dose reduction techniques was utilized for this exam: Automated exposure control, adjustment of the mA and/or kV according to patient size, and use of iterative reconstruction. FINDINGS: Brain Parenchyma: Accentuated deep periventricular hypodensities likely microvascular changes. Bilateral frontal tiny hypodense foci are noted likely old lacunar infarcts. No evidence of acute infarct, hemorrhage, or mass effect. No abnormal areas of hypo- or hyperattenuation. Ventricular System: Moderate dilatation of the supra tentorial ventricular system. No evidence of hydrocephalus. Subarachnoid Spaces: Accnetuated cortical suci and extra-axial CSF spaces. No evidence of subarachnoid hemorrhage or extra-axial fluid collections. Cerebellum and Brainstem: Normal size and signal. No masses, lesions, or areas of abnormal signal. Orbits: Normal appearance of the globes, optic nerves, and extraocular muscles. No evidence of orbital masses or abnormal signals. Sinuses: Clear paranasal sinuses. No evidence of sinusitis or mucosal thickening. Mastoid Air Cells: Clear mastoid air cells. No evidence of mastoiditis. Skull: Normal skull morphology. IMPRESSION: 1. No evidence of acute infarct, hemorrhage, or mass effect. 2. Accentuated deep periventricular hypodensities likely microvascular changes. 3. Bilateral frontal tiny hypodense foci are noted likely old lacunar infarcts. 4. Involutional senile brain changes. 5. MRI brain can be done to rule out any acute abnormality if clinically needed. Electronically Signed by: Mauricio Schwartz MD. (11/19/2024 19:42:15 EST)
[2024-11-19 20:18] VITALS: BP 156/74; PULSE 64; RESP 18
== END 2024-11-19 20:50 | disposition home or self-care (01) ==
LOC: ED 18:19
DX: R41.0 Disorientation, unspecified (principal); Z79.01 Long term (current) use of anticoagulants; I48.20 Chronic atrial fibrillation, unspecified; E11.9 Type 2 diabetes mellitus without complications; Z79.899 Other long term (current) drug therapy
CPT/HCPCS: 36415; 70450; 80053; 81001; 83735; 84484; 85025; 85610; 93005; 94760; 99284; 99285

== ENCOUNTER 2024-11-21 15:05 | Emergency (ER) | payer MEDICARE | END 2024-11-21 16:00 | disposition left against medical advice (07) | LOC: ED 15:05 | DX: Z53.21 Procedure and treatment not carried out due to patient leaving prior to being seen by health care provider (principal) ==